=== PATIENT | male | born 1950 | race Caucasian/White ===

== ENCOUNTER 2020-05-10 08:23 | Outpatient (REF) | payer MEDICARE, SELFPAY ==
[2020-05-10 09:25] LABS: MANUAL DIFF FLAG NO
[2020-05-10 09:27] LABS: Basophils Percent Auto 0.5 % (0-2); Eosinophils Absolute Auto 0.1 X10*3/uL (0.0-0.4); Eosinophils Percent Auto 3.4 % (0-4); Hematocrit 41.7 % (42-52); Hemoglobin 14.2 g/dl (14.0-18.0); Imm Gran Abs Auto 0.01 X10*3/uL (0.00-0.03); Imm Gran Pct Auto 0.3 % (0.0-0.4); Lymphocytes Percent Auto 24.8 % (20-40); Mean Corpuscular HGB Conc 34.1 g/dl (31.0-36.0); Mean Corpuscular Hemoglobin 32.1 pg (27.0-33.0); Mean Corpuscular Volume 94.3 fL (80-98); Mean Platelet Volume 10.6 fL (9.4-12.4); Monocytes Absolute Auto 0.5 X10*3/uL (0.1-1.2); Monocytes Percent Auto 11.9 % (2-11); Neutrophils Absolute Auto 2.3 X10*3/uL (2.0-8.3); Neutrophils Percent Auto 59.1 % (45-73); Platelet Count 181 X10*3/uL (160-400); Red Blood Count 4.42 X10*6/uL (4.60-5.80); Red Cell Distribution Width 11.7 % (11.0-16.0); White Blood Count 3.9 X10*3/uL (4.8-10.8)
[2020-05-10 09:49] LABS: Alanine Aminotransferase 16 U/L (0-40); Albumin Level 3.9 g/dL (3.5-5.0); Alkaline Phosphatase 67 U/L (39-117); Anion Gap 7 (12-20); Aspartate Amino Transferase 19 U/L (5-37); Bilirubin Total 0.9 mg/dL (0.0-1.0); Blood Urea Nitrogen 14 mg/dL (9-16); Calcium 8.6 mg/dL (8.4-10.2); Carbon Dioxide 33 mmol/L (22-29); Chloride 105 mmol/L (96-108); Cholesterol 154 mg/dL; Estimated Glomerular Filt Rate > 60; Glucose Random 87 mg/dL (60-115); HDL Cholesterol 43 mg/dL; LDL Cholesterol Calculated 100 mg/dl; Potassium 4.2 mmol/l (3.3-5.1); Sodium 141 mmol/L (135-145); Total Protein 6.5 g/dL (6.5-8.0); Triglycerides 58 mg/dL
[2020-05-10 10:10] LABS: Free T4 (Free Thyroxine) 1.02 ng/dL (0.71-1.85); Prostate Specific Antigen Scr 0.91 ng/mL (<0.05-4.0); Thyroid Stimulating Hormone 0.87 uIU/mL (0.32-4.0)
[2020-05-10 10:27] LABS: Folate 18.8 ng/mL (> or = 4.0); Vitamin B12 442 pg/mL (200-900)
== END 2020-05-10 08:24 | disposition home or self-care (01) ==
LOC: HO.LAB 08:23
PROVIDERS: Visit Provider Internal Medicine
DX: K40.90 Unilateral inguinal hernia, without obstruction or gangrene, not specified as recurrent (principal); E78.00 Pure hypercholesterolemia, unspecified
CPT/HCPCS: 36415; 80053; 80061; 82607; 82746; 84153; 84439; 84443; 85025

== ENCOUNTER 2021-03-30 11:49 | Outpatient (REF) | payer MEDICARE, SELFPAY ==
[2021-03-30 12:04] LABS: MANUAL DIFF FLAG NO
[2021-03-30 13:01] LABS: Basophils Percent Auto 0.3 % (0-2); Eosinophils Absolute Auto 0.1 X10*3/uL (0.0-0.4); Eosinophils Percent Auto 2.4 % (0-4); Hematocrit 41.2 % (42.0-52.0); Hemoglobin 13.7 g/dl (14.0-18.0); Imm Gran Abs Auto 0.01 X10*3/uL (0.00-0.03); Imm Gran Pct Auto 0.3 % (0.0-0.4); Lymphocytes Absolute Auto 0.9 X10*3/uL (1.2-4.9); Lymphocytes Percent Auto 22.9 % (20-40); Mean Corpuscular HGB Conc 33.3 g/dl (31.0-36.0); Mean Corpuscular Hemoglobin 31.5 pg (27.0-33.0); Mean Corpuscular Volume 94.7 fL (80.0-98.0); Mean Platelet Volume 10.2 fL (9.4-12.4); Monocytes Absolute Auto 0.5 X10*3/uL (0.1-1.2); Monocytes Percent Auto 13.6 % (2-11); Neutrophils Absolute Auto 2.3 x10*3/uL (2.0-8.3); Neutrophils Percent Auto 60.5 % (45-73); Platelet Count 208 X10*3/uL (160-400); Red Blood Count 4.35 X10*6/uL (4.60-5.80); Red Cell Distribution Width 11.8 % (11.0-16.0); White Blood Count 3.8 X10*3/uL (4.8-10.8)
[2021-03-30 14:02] LABS: Folate 17.2 ng/mL (> or = 4.0); Vitamin B12 309 pg/mL (200-900)
[2021-03-30 14:31] LABS: Alanine Aminotransferase 14 U/L (0-40); Alkaline Phosphatase 70 U/L (39-117); Anion Gap 8 (12-20); Aspartate Amino Transferase 15 U/L (5-37); Bilirubin Total 0.6 mg/dL (0.0-1.0); Blood Urea Nitrogen 18 mg/dL (9-16); Calcium 8.3 mg/dL (8.4-10.2); Carbon Dioxide 29 mmol/L (22-29); Chloride 107 mmol/L (96-108); Cholesterol 158 mg/dL; Estimated Glomerular Filt Rate > 60; Glucose Random 84 mg/dL (60-115); HDL Cholesterol 40 mg/dL; LDL Cholesterol Calculated 110 mg/dl; Potassium 4.1 mmol/L (3.3-5.1); Sodium 140 mmol/L (135-145); Total Protein 6.7 g/dL (6.5-8.0); Triglycerides 43 mg/dL
[2021-03-30 14:46] LABS: Free T4 (Free Thyroxine) 0.98 ng/dL (0.71-1.85); Prostate Specific Antigen Scr 0.76 ng/mL (<0.05-4.0); Thyroid Stimulating Hormone 0.68 uIU/mL (0.32-4.0)
== END 2021-03-30 11:50 | disposition home or self-care (01) ==
LOC: HO.LAB 11:49
PROVIDERS: PCP Internal Medicine; Visit Provider Internal Medicine
DX: Z12.5 Encounter for screening for malignant neoplasm of prostate (principal); E53.8 Deficiency of other specified B group vitamins; G25.0 Essential tremor; E78.00 Pure hypercholesterolemia, unspecified
CPT/HCPCS: 36415; 80053; 80061; 82306; 82607; 82746; 84153; 84439; 84443; 85025

== ENCOUNTER 2021-10-17 08:28 | Outpatient (REF) | payer MEDICARE, SELFPAY ==
[2021-10-19 05:37] LABS: Lyme Abs Screen <0.90 index
== END 2021-10-17 08:29 | disposition home or self-care (01) ==
LOC: HO.LAB 08:28
PROVIDERS: PCP Internal Medicine; Visit Provider Internal Medicine
DX: T14.8XXA Other injury of unspecified body region, initial encounter (principal); W57.XXXA Bitten or stung by nonvenomous insect and other nonvenomous arthropods, initial encounter
CPT/HCPCS: 36415; 86617; 86618

== ENCOUNTER 2021-11-13 14:46 | Outpatient (REF) | payer MEDICARE, SELFPAY ==
[2021-11-13 15:06] LABS: MANUAL DIFF FLAG NO
[2021-11-13 15:37] LABS: Basophils Percent Auto 0.5 % (0-2); Eosinophils Absolute Auto 0.2 X10*3/uL (0.0-0.4); Eosinophils Percent Auto 4.1 % (0-4); Hematocrit 39.4 % (42.0-52.0); Hemoglobin 13.6 g/dl (14.0-18.0); Imm Gran Abs Auto 0.01 X10*3/uL (0.00-0.03); Imm Gran Pct Auto 0.3 % (0.0-0.4); Immature Retic Fraction 6.1 % (2.3-13.4); Mean Corpuscular HGB Conc 34.5 g/dl (31.0-36.0); Mean Corpuscular Hemoglobin 32.8 pg (27.0-33.0); Mean Corpuscular Volume 94.9 fL (80.0-98.0); Mean Platelet Volume 10.4 fL (9.4-12.4); Monocytes Absolute Auto 0.5 X10*3/uL (0.1-1.2); Monocytes Percent Auto 13.1 % (2-11); Neutrophils Absolute Auto 2.2 x10*3/uL (2.0-8.3); Platelet Count 176 X10*3/uL (160-400); Red Blood Count 4.15 X10*6/uL (4.60-5.80); Reticulocyte Percent 1.1 % (0.5-1.8); Reticulocytes Absolute 0.044 X10*6/uL (0.026-0.095); White Blood Count 3.9 X10*3/uL (4.8-10.8)
[2021-11-13 16:05] LABS: Alanine Aminotransferase 14 U/L (0-40); Alkaline Phosphatase 66 U/L (39-117); Anion Gap 9 (12-20); Aspartate Amino Transferase 18 U/L (5-37); Bilirubin Total 0.6 mg/dL (0.0-1.0); Blood Urea Nitrogen 20 mg/dL (9-16); Calcium 8.5 mg/dL (8.4-10.2); Carbon Dioxide 31 mmol/L (22-29); Chloride 105 mmol/L (96-108); Estimated Glomerular Filt Rate > 60; Glucose Random 83 mg/dL (60-115); Iron 130 mcg/dL (45-160); Percent Iron Saturation 43 % (15-50); Phosphorus 3.5 mg/dL (2.7-4.5); Potassium 4.3 mmol/L (3.3-5.1); Sodium 141 mmol/L (135-145); Total Iron Binding Capacity 300 mcg/dL (228-428); Total Protein 6.7 g/dL (6.5-8.0); Unsaturated Iron Binding 170 ug/dL
[2021-11-13 16:11] LABS: Erythrocyte Sedimentation Rate 7 MM/HR (0-15)
[2021-11-13 16:26] LABS: Ferritin 43 ng/mL (20-250); Thyroid Stimulating Hormone 0.63 uIU/mL (0.32-4.0)
[2021-11-13 16:37] LABS: Folate 17.6 ng/mL (> or = 4.0); Vitamin B12 293 pg/mL (200-900)
[2021-11-14 15:47] LABS: Calcium (PTHI) 8.8 mg/dL (8.6-10.3); PTHI 63 pg/mL (16-77)
[2021-11-15 17:03] LABS: Lyme Abs Screen <0.90 index
== END 2021-11-13 14:47 | disposition home or self-care (01) ==
LOC: HO.LAB 14:46
PROVIDERS: PCP Internal Medicine; Visit Provider Internal Medicine
DX: D64.9 Anemia, unspecified (principal); T14.8XXA Other injury of unspecified body region, initial encounter; W57.XXXA Bitten or stung by nonvenomous insect and other nonvenomous arthropods, initial encounter; E83.51 Hypocalcemia
CPT/HCPCS: 36415; 80053; 82306; 82607; 82728; 82746; 83540; 83735; 83970; 84100; 84439; 84443; 85025; 85045; 85652; 86617; 86618

== ENCOUNTER → 2021-12-04 11:12 | Outpatient (BNV) | payer MEDICARE, SELFPAY | PROVIDERS: PCP Internal Medicine; Referring Provider Internal Medicine; Visit Provider Internal Medicine Medical Oncology | DX: D64.9 Anemia, unspecified (principal) | CPT/HCPCS: 99204; 99213 ==

== ENCOUNTER 2022-04-02 15:20 | Outpatient (REF) | payer MEDICARE, SELFPAY ==
--- NOTE | ~2022-04-02 | US_ITS ---
EXAMINATION: US PELVIS LIMITED (BLADDER) CLINICAL INFORMATION: Frequency of micturition. COMPARISON: None TECHNIQUE: Real-time imaging of the bladder. FINDINGS: BLADDER: Well distended and normal. Bilateral ureteral jets are demonstrated. Prevoid bladder volume is 212 mL. Postvoid bladder volume is 75.1 mL. Enlarged prostate, volume 68.2 mL. Dystrophic shadowing calcifications in the prostate. US/US bladder IMPRESSION: Post void bladder residual of 75.1 mL. Prostate is enlarged measuring 68.2 mL.
== END 2022-04-02 15:21 | disposition home or self-care (01) ==
LOC: HO.US 15:20
PROVIDERS: Visit Provider Internal Medicine
DX: R35.0 Frequency of micturition (principal)
CPT/HCPCS: 76857

== ENCOUNTER 2023-06-10 08:52 | Outpatient (AMB) | payer MEDICARE, SELFPAY ==
[2023-06-10 08:53] VITALS: BP 126/80; PULSE 59; O2SAT 99; BMI 22.5
--- NOTE | 2023-06-10 08:53 | AM.OFFVISMDC ---
Intake Vital Signs 06/10/23 08:53 Height 5 ft 11 in Weight 161 lb 0.8 oz BMI 22.5 BP 126/80 Blood Pressure Location Lt brachial Position Sitting Pulse 59 Pulse Source Pulse Oximeter Pulse Oximetry (%) 99 Oxygen Delivery Method Room Air Intake Visit Reasons: TIERNEY [id number] Intake Note: Patient is here for an Annual Wellness Visit. Safety Professional Required: No Allergies amoxicillin [AMOXICILLIN] Allergy (Severe, Verified 06/10/23 08:54) ITCHING bee pollen [BEE STINGS] Allergy (Severe, Verified 06/10/23 08:54) ANAPHYLAXIS hazelnut Allergy (Severe, Verified 06/10/23 08:54) SWELLING/ITCHING OF THROAT walnut Allergy (Severe, Verified 06/10/23 08:54) SWELLING/ITCHING OF THROAT hornet venom [HORNETS] Allergy (Unknown, Verified 06/10/23 08:54) ANAPHYLAXIS Penicillins [PCN] Allergy (Unknown, Verified 06/10/23 08:54) UNKNOWN lactose [LACTOSE] Adverse Reaction (Intermediate, Verified 06/10/23 08:54) GI UPSET Medication List - Last Reconciled 06/10/23 by Mora Foster MD ascorbic acid (vitamin C) 1 g PO Q6H cyanocobalamin (vitamin B-12) 1,000 mcg PO DAILY flaxseed oil 1,000 mg PO DAILY multivitamin 1 tab PO DAILY tamsulosin 0.4 mg PO BEDTIME 90 days Fall Risk Assessment Fall risk assessment: No Falls in past year Date Fall Risk Assessed: 06/10/23 HPI [facility] G0439 HPI Details 73-year-old male with a history of essential tremor vitamin B12 deficiency anemia frequency of micturition coming in for annual well visit last seen in February 2022. Patient's colonoscopy up-to-date November 2019 and 5 years. Review of the notes has seen hematology oncology April 2023 for normochromic normocytic anemia and leukopenia advised to continue monitoring as the workup has been negative. Patient did have an annual well visit in May 2022 under the nurse practitioner. Wrist thing back in March 2022 had frequency and an ultrasound of the bladder done showing a postvoid of 75 cc an enlargement of prostate 68.2 cc. occ dizzy and drinks water better. - 04/2023 R eye blank- came back vision - after which happened again - will be seeing Dr. Holley this week. covid 12/2022 [facility] Medical History Cholelithiasis Essential tremor Migraine Polyp of ear canal Tubular adenoma of colon Vitamin B12 deficiency Vitamin D deficiency Surgical History History of ear surgery History of tonsillectomy Family History Father CVD (cerebrovascular disease) Stroke Mother Sister Melanoma Myocardial infarction Maternal Grandmother Pancreatic cancer Paternal Grandfather Lung cancer Maternal Aunt Colon cancer Maternal Uncle Myocardial infarction Social History (Updated 06/10/23 @ 09:34 by Mora Foster MD) Household Members: None Housing: House Alcohol intake: never Patient Tobacco Use Status: Former Tobacco user Years Smoked: stopped 1977 e-Cigarette/Vaping Use: Never Used Second Hand Smoke Exposure: No service: No Current occupational status: employed and retired Gender identity: Male Cognitive needs: No Hearing needs: No Vision needs: Yes Questionnaire Medicare Wellness Checkup What [age]?: 71-79 (72) What gender do you identify with?: male During the past 4 weeks, how much have you been bothered by emotional problems such as feeling anxious, depressed, irritable, sad or downhearted, and blue?: not at all During the past 4 weeks, has your physical & emotional health limited your social activities with family, friends, neighbors, or groups?: not at all During the past 4 weeks, how much bodily pain have you generally had?: very mild pain During the past 4 weeks, was someone available to help you if you needed & wanted help?: yes, quite a bit During the past 4 weeks, what was the hardest physical activity you could do for at least 2 minutes?: heavy Can you get to places out of walking distance without help? (For eg., can you travel alone on buses, taxis or drive your car?): Yes Can you go shopping for groceries or clothes without someone's help?: Yes Can you prepare your own meals?: Yes Can you do your housework without help?: Yes Because of any health problems, do you need the help of another person with your personal care needs such as eating, bathing, dressing or getting around the house?: No Can you handle your own money without help?: Yes During the past 4 weeks, how would you rate your health in general?: very good During the past 4 weeks how have things been going for you?: very well; could hardly better Are you having difficulties driving your car?: no Do you always fasten your seat belt when you are in a car?: yes, usually During past 4 weeks, have you been bothered by the following: never: Sexual problems?, Trouble eating well?, Teeth or denture problems?, Problems using the telephone? and Tiredness or fatigue? and seldom: Falling or dizzy when standing up Have you fallen 2 or more times in the past year?: No Are you afraid of falling?: No Are you a smoker?: no During the past 4 weeks, how many drinks of wine, beer, or other alcoholic beverages did you have?: no alcohol at all Do you exercise for about 20 minutes 3 or more times a week?: yes, all the time Have you been given information to help with the following?: no: Hazards in your house that might hurt you? and no: Keeping track of your medications? How often do you have trouble taking medicines the way you have been told to take them?: I always take medicine as prescribed How confident are you that you can control & manage most of your health problems?: very confident What is your race?: White PHQ-9 Over the last 2 weeks, how often have you been bothered by any of the following problems? 1. Little interest or pleasure in doing things: not at all 2. Feeling down, depressed, or hopeless: not at all 3. Trouble falling or staying asleep, or sleeping too much: not at all 4. Feeling tired or having little energy: not at all 5. Poor appetite or overeating: not at all 6. Feeling bad about yourself - or that you are a failure or have let yourself or your family down: not at all 7. Trouble concentrating on things, such as reading the newspaper or watching television: not at all 8. Moving or speaking so slowly that other people could have noticed. Or the opposite - being so fidgety or restless that you have been moving around a lot more than usual: not at all 9. Thoughts that you would be better off or of hurting yourself in some way: not at all Total score: 0 Depression Screening Interpretation: Negative Depression Screening Done: Yes 92183 - PHQ-9 Billing: Yes Source: Developed by Drs. Chepe Peoples, Al Calle and colleagues, with an educational daniel from [employer]. GIULIANO-7 AMB Questionnaire GIULIANO-7 Date GIULIANO - 7 assessed: 06/10/23 Feeling nervous, anxious, or on edge: 0 = Not at all Not being able to stop or control worryin = Not at all Worrying too much about different things: 0 = Not at all Trouble relaxin = Not at all Being so restless that it is hard to sit still: 0 = Not at all Becoming easily annoyed or irritable: 0 = Not at all Feeling afraid as if something awful might happen: 0 = Not at all Total GIULIANO-7 score (0-4 normal; 5-9 mild; 10-14 moderate; 15-21 severe): 0 Source: Developed by Drs. Chepe Peoples, Cris Matos, Al Shaw and colleagues, with an educational daniel from [employer]. Thrive Questionnaire Date Thrive assessed: 06/10/23 I am a: Patient What is your living situation today?: I have a steady place to live Within the past 12 months, did the food you bought not last and you didn't have the money to get more?: Never true Within the past 12 months, did you worry whether your food would run out before you got money to buy more?: Never true Do you have trouble paying for medicines?: No Do you have trouble getting transportation to medical appointments?: No Do you have trouble paying your heating and electricity bill?: No Do you have trouble taking care of your child, family member or friend?: No Do you have trouble with day-to-day activities such as bathing, preparing meals, shopping, managing finances, etc.?: No Are you currently unemployed and looking for a job?: No Are you interested in more education?: No Please select the resources that you would like help with: None THRIVE Score: 0 AUDIT C Alcohol Use Questionnaire (AUDIT-C) 1. How often do you have a drink containing alcohol?: Monthly or less 2. How many drinks containing alcohol do you have on a typical day when you are drinking?: 5 or 6 3. How often do you have six or more drinks on one occasion?: Never Total Score: 3 Score Reviewed/Action Taken: No Review of Systems Const Denies poor appetite and Denies weakness Eyes Denies no additional complaints ENT Reports Normal hearing present, Denies dizziness, Denies nasal congestion, Denies tinnitus and Denies sore throat Card Denies chest pain, Denies syncope, Denies rapid heart rate and Denies dyspnea Resp Denies cough and Denies dyspnea GI Denies change in stool character, Reports constipation, Denies diarrhea, Denies nausea and Denies vomiting Denies dysuria and Denies urinary frequency Neuro Reports Normal hearing present, Denies confusion, Denies dizziness, Denies syncope and Denies weakness Psych Denies confusion Physical Exam Vital Signs: Last Vital Signs Pulse 59 06/10/23 08:53 BP 126/80 06/10/23 08:53 Pulse Ox 99 06/10/23 08:53 Oxygen Delivery Method Room Air 06/10/23 08:53 BMI result Body Mass Index 22.5 Const General: No confusion Orientation/consciousness: No confusion HEENT Head: Yes normocephalic Ears: external ears normal and TM's normal bilaterally Face and sinus: Yes normal facial exam Mouth: moist mucous membranes Throat: Yes tonsils normal Eyes Conjunctivae: conjunctivae normal Pupils: Equal, round and reactive pupils present and Pupil accommodation reflex normal Direct Ophthalmoscopy: normal light reflex Neck Neck: No lymphadenopathy Thyroid: Thyroid normal Chest Chest palpation & inspection: normal inspection of the chest Resp Effort & Inspection: normal respiratory effort and no audible wheezes Auscultation: clear to auscultation bilaterally, no crackles, no wheezes and lung sounds not diminished Cardio Rate: regular rate Rhythm: regular rhythm Peripheral pulses: radial pulses present and dorsalis pedis present GI Other: guaiac neg prostate enlatged no mass Palpation (GI): no masses Auscultation: normal bowel sounds and normoactive bowel sounds Rectal Exam - Male: Yes deferred Other: mild R inguinal bulge noted Skin General skin exam: no rashes or lesions noted Rashes: no rashes Neuro General: No confusion Cranial nerves: Yes Equal, round and reactive pupils present and Yes Normal hearing present Cognition (Neuro): normal cognition Gait exam (Neuro): Normal gait present Motor exam (neuro): 5/5 motor strength present throughout Deep tendon reflexes (DTR's): Right brachioradialis reflex intensity grade: 2+, Left brachioradialis reflex intensity grade: 2+, Right patellar reflex intensity grade: 2+ and Left patellar reflex intensity grade: 2+ Extrem General: No edema Assessment & Plan Assessment & Plan (1) Medicare annual wellness visit, subsequent: Code(s): Z00.00 - Encounter for general adult medical examination without abnormal findings Plan: Keep well hydrated, eat healthy and keep active (2) BPH (benign prostatic hyperplasia): Code(s): N40.0 - Benign prostatic hyperplasia without lower urinary tract symptoms Qualifiers: Lower urinary tract symptom presence: symptoms present Lower urinary tract symptom detail: urinary frequency Qualified Code(s): N40.1 - Benign prostatic hyperplasia with lower urinary tract symptoms; R35.0 - Frequency of micturition Plan: Prescribed tamsulosin but states does not feel any different. And presently stable (3) Urinary retention: Code(s): R33.9 - Retention of urine, unspecified Plan: Patient has been prescribed tamsulosin (4) Normochromic normocytic anemia: Code(s): D64.9 - Anemia, unspecified Plan: Resolved continues to follow-up with Hematology-Oncology (5) Vitamin B12 deficiency: Comment: Vegetarian Code(s): E53.8 - Deficiency of other specified B group vitamins Plan: Continue with vitamin B12 (6) Essential tremor: Code(s): G25.0 - Essential tremor Plan: Stable Medications: New varicella-zoster [id number] (PF) 50 mcg/0.5 mL (Shingrix (PF)) 0.5 mL IM ONCE 1 day 1 ea 0RF Quality Reporting (2019) Fall Risk Screening ([facility] 139) Last assessed Fall Risk: 06/10/23 Fall risk assessment: No Falls in past year Depression/Bipolar (159/160/161/177) PHQ-9: Total score: 0 Coding Level of Care Code Medicare Subsequent (G0439) Diagnoses Medicare annual wellness visit, subsequent Z00.00 Benign prostatic hyperplasia with urinary frequency N40.1; R35.0 Lower urinary tract symptom presence: symptoms present Lower urinary tract symptom detail: urinary frequency Urinary retention R33.9 Normochromic normocytic anemia D64.9 Vitamin B12 deficiency E53.8 Essential tremor G25.0
== END 2023-06-10 09:55 | disposition home or self-care (01) ==
PROVIDERS: Visit Provider Internal Medicine
DX: Z00.00 Encounter for general adult medical examination without abnormal findings (principal); N40.1 Benign prostatic hyperplasia with lower urinary tract symptoms; R35.0 Frequency of micturition; R33.9 Retention of urine, unspecified; D64.9 Anemia, unspecified; E53.8 Deficiency of other specified B group vitamins; G25.0 Essential tremor
CPT/HCPCS: G0439

== ENCOUNTER 2023-06-10 10:01 | Outpatient (REF) | payer MEDICARE, SELFPAY ==
[2023-06-10 10:16] LABS: MANUAL DIFF FLAG NO
[2023-06-10 10:50] LABS: Basophils Percent Auto 0.6 % (0-2); Eosinophils Absolute Auto 0.1 X10*3/uL (0.0-0.4); Eosinophils Percent Auto 3.6 % (0-4); Hematocrit 42.5 % (42.0-52.0); Hemoglobin 14.3 g/dl (14.0-18.0); Imm Gran Abs Auto 0.01 X10*3/uL (0.00-0.03); Imm Gran Pct Auto 0.3 % (0.0-0.4); Lymphocytes Absolute Auto 0.9 X10*3/uL (1.2-4.9); Lymphocytes Percent Auto 23.5 % (20-40); Mean Corpuscular HGB Conc 33.6 g/dl (31.0-36.0); Mean Corpuscular Hemoglobin 31.8 pg (27.0-33.0); Mean Corpuscular Volume 94.7 fL (80.0-98.0); Mean Platelet Volume 10.3 fL (9.4-12.4); Monocytes Absolute Auto 0.4 X10*3/uL (0.1-1.2); Monocytes Percent Auto 11.1 % (2-11); Neutrophils Absolute Auto 2.2 x10*3/uL (2.0-8.3); Neutrophils Percent Auto 60.9 % (45-73); Platelet Count 165 X10*3/uL (160-400); Red Blood Count 4.49 X10*6/uL (4.60-5.80); Red Cell Distribution Width 12.1 % (11.0-16.0); Retic HGB Equivalent 36.6 pg (30.0-35.0); Reticulocyte Percent 1.1 % (0.5-1.8); White Blood Count 3.6 X10*3/uL (4.8-10.8)
[2023-06-10 10:52] LABS: Appearance Urine Clear; Color Urine Yellow; Glucose Urine UA Negative (Negative); Leukocyte Esterase Urine Negative (Negative); Nitrite Urine Negative (Negative); PH 5.5 (5.0-9.0); Specific Gravity - Urine >= 1.030 (1.005-1.025); UMIC TRIGGER UA YES; Urine Blood Moderate (2+) (Negative); Urine Ketones Negative (Negative); Urine Protein 30 (1+) mg/dL (Neg-Trace)
[2023-06-10 10:59] LABS: Bacteria Urine None Seen (None Seen); Hyaline Casts Urine 0-2 /LPF (0-2); Squamous Epithelial Cell Urine 0-2 /HPF (0-2); WBC Urine 0-5 /HPF (0-5)
[2023-06-10 11:24] LABS: Alanine Aminotransferase 15 U/L (0-40); Albumin Level 3.9 g/dL (3.5-5.0); Alkaline Phosphatase 75 U/L (39-117); Anion Gap 11 (12-20); Aspartate Amino Transferase 17 U/L (5-37); Bilirubin Total 0.6 mg/dL (0.0-1.0); Blood Urea Nitrogen 13 mg/dL (9-16); Calcium 9.1 mg/dL (8.4-10.2); Carbon Dioxide 30 mmol/L (22-29); Chloride 106 mmol/L (96-108); Cholesterol 158 mg/dL (<200); Estimated Glomerular Filt Rate > 60; Glucose Random 89 mg/dL (60-115); HDL Cholesterol 47 mg/dL (>40); Iron 115 mcg/dL (45-160); LDL Cholesterol Calculated 101 mg/dL (<100); Percent Iron Saturation 42 % (15-50); Potassium 4.1 mmol/L (3.3-5.1); Sodium 143 mmol/L (135-145); Total Iron Binding Capacity 277 mcg/dL (228-428); Total Protein 6.8 g/dL (6.5-8.0); Triglycerides 51 mg/dL (<150); Unsaturated Iron Binding 162 ug/dL
[2023-06-10 11:47] LABS: Ferritin 43 ng/mL (20-250); Free T4 (Free Thyroxine) 0.92 ng/dL (0.71-1.85); Thyroid Stimulating Hormone 1.09 uIU/mL (0.32-4.0)
[2023-06-10 11:48] LABS: Folate 13.2 ng/mL (> or = 4.0); Prostate Specific Antigen Scr 0.79 ng/mL (<0.05-4.0); Vitamin B12 757 pg/mL (200-900)
== END 2023-06-10 10:02 | disposition home or self-care (01) ==
LOC: HO.LAB 10:01
PROVIDERS: PCP Internal Medicine; Visit Provider Internal Medicine
DX: D64.9 Anemia, unspecified (principal); G25.0 Essential tremor; E78.00 Pure hypercholesterolemia, unspecified; Z12.5 Encounter for screening for malignant neoplasm of prostate
CPT/HCPCS: 36415; 80053; 80061; 81001; 82607; 82728; 82746; 83540; 84153; 84439; 84443; 85025; 85045

== ENCOUNTER 2023-11-01 12:51 | Emergency (ER) | payer MEDICARE, SELFPAY ==
[2023-11-01] VITALS (7 sets, daily range): BP systolic 130–149; BP diastolic 64–83; PULSE 59–86; RESP 12–18; TEMP 36.6; O2SAT 98–99; BMI 22.3
--- NOTE | ~2023-11-01 | XR_ITS ---
EXAMINATION: XR CHEST CLINICAL INFORMATION: Chest tightness COMPARISON: Chest radiograph from 05/10/2015 TECHNIQUE: 2 views of the chest were obtained. FINDINGS: No focal consolidation. No pneumothorax. Trachea is midline. Cardiac mediastinal silhouette is not enlarged. Aorta demonstrates tortuosity. No large pleural effusion. Dextrocurvature of the thoracolumbar spine. Soft tissues are unremarkable. XR/XR chest 2V IMPRESSION: No acute cardiopulmonary process.
--- NOTE | ~2023-11-01 | CT_ITS ---
EXAMINATION: CT HEAD WITHOUT CONTRAST CLINICAL INFORMATION: Left arm weakness difficulty staying awake COMPARISON: MRI brain from 11/11/2011 TECHNIQUE: Contiguous axial imaging was performed from the skull base to vertex without intravenous administration of contrast. This CT examination was performed using dose optimization techniques as appropriate, variously including the following: *Automated exposure control *Adjustment of mA and/or kV according to patient size (this includes techniques or standardized protocols for targeted exams where dose is matched to indication/reason for exam; i.e. extremities or head) *Use of iterative reconstruction technique DLP: 636 mGy-cm FINDINGS: There is no evidence of acute intracranial hemorrhage or territorial infarction. Chronic white matter small vessel ischemic changes. No abnormal mass effect or midline shift is seen. Moreno to white matter differentiation is well preserved. No extra-axial fluid collections are identified. The ventricles are normal in size. There is no abnormal attenuation within the brain parenchyma. The osseous structures and soft tissues are normal. Partially visualized mucosal retention cyst versus polyp right maxillary sinus. The mastoid air cells and visualized portions of the paranasal sinuses are well aerated. CT/CT head/brain wo IV con IMPRESSION: 1. No acute intracranial pathology. 2. Chronic white matter small vessel ischemic changes.
--- NOTE | 2023-11-01 12:53 | ECG_ITS ---
Test Reason : DIZZY Blood Pressure : / mmHG Vent. Rate : 087 BPM Atrial Rate : 087 BPM P-R Int : 138 ms QRS Dur : 104 ms QT Int : 360 ms P-R-T Axes : 074 068 061 degrees QTc Int : 433 ms Normal sinus rhythm Minimal voltage criteria for LVH, may be normal variant ( [place] product ) Borderline ECG When compared with ECG of 24-JUN-2019 14:41, Nonspecific T wave abnormality no longer evident in Anterolateral leads Referred By: Maria M Kim Electronically Signed By:Jose C Gonzalez
--- NOTE | 2023-11-01 12:58 | ED.GENADULT ---
HPI - General Adult General Chief complaint: Dizziness Stated complaint: lightheaded dry mouth Time Seen by Provider: 11/01/23 16:00 Source: patient and RN notes reviewed Mode of arrival: ambulatory Limitations: no limitations History of Present Illness ED Provider: Angle Reynolds PA-C HPI narrative: This is a 73-year-old male, with a history of BPH and essential tremor, who presents emergency department with complaints of intermittent lightheadedness x6 days. Patient states that he has noticed that he is lightheaded in the morning describing this lightheadedness as the room spinning as well as as if he has on a boat. Patient states that he notices this especially with positional changes and lasts for several seconds and resolves on its own. Patient also states that over the last week or so he has also had mouth and throat tingling. Patient states that while he was driving to [place] this afternoon his car was alerting him to stay alert. He states that he is feeling fatigued at the time however did not lose consciousness or believes that he was driving recklessly. He states that he felt some numbness and tingling down his left arm which lasted for several minutes. He did not have any chest pain or shortness for breath at that time. He states that he pull to the side of the road and came to the emergency room. He denies any fevers, chills, chest pain, palpitations, shortness of breath, abdominal pain, nausea, vomiting or diarrhea. He states that he does hike [place] with his dog on a regular basis. No known tick bites. No rashes. Denies any other complaints or concerns at this time. complaint: Lightheadedness Onset (ago): day(s) Radiation: non-radiation Relieving factors: none Exacerbating factors: none Associated symptoms: denies other symptoms Treatments prior to arrival: none Related Data Home Medications ?Medication ?Instructions ?Recorded ?Confirmed cyanocobalamin (vitamin B-12) 1,000 mcg PO DAILY 04/04/20 06/10/23 1,000 mcg capsule flaxseed oil 1,000 mg capsule 1,000 mg PO DAILY 04/04/20 06/10/23 multivitamin 1 tab PO DAILY 04/04/20 06/10/23 ascorbic acid (vitamin C) 1,000 mg 1 g PO Q6H 06/10/23 06/10/23 capsule Previous Rx's ?Medication ?Instructions ?Recorded varicella-zoster glycoE [id number] 0.5 ml IM ONCE 1 day #1 ea 06/10/23 adj(PF) 50 mcg/0.5 mL IM susp, kit (Shingrix (PF)) tamsulosin 0.4 mg capsule 0.4 mg PO BEDTIME 90 days #90 caps 09/29/23 Allergies Allergy/AdvReac Type Severity Reaction Status Date / Time amoxicillin [AMOXICILLIN] Allergy Severe ITCHING Verified 11/01/23 13:02 bee pollen [BEE STINGS] Allergy Severe ANAPHYLAXIS Verified 11/01/23 13:02 hazelnut Allergy Severe SWELLING/ITCHING Verified 11/01/23 13:02 OF THROAT walnut Allergy Severe SWELLING/ITCHING Verified 11/01/23 13:02 OF THROAT hornet venom [HORNETS] Allergy Unknown ANAPHYLAXIS Verified 11/01/23 13:02 Penicillins [PCN] Allergy Unknown UNKNOWN Verified 11/01/23 13:02 lactose [LACTOSE] AdvReac Intermediate GI UPSET Verified 11/01/23 13:02 Review of Systems Review of Systems: Yes all other systems are reviewed and are negative Constitutional: Constitutional: Reports as per [facility] Past Medical History Attestation statement: The following information was validated with the patient. Medical History Cholelithiasis Migraine Tubular adenoma of colon Essential tremor Polyp of ear canal Vitamin D deficiency Vitamin B12 deficiency Surgical History History of ear surgery History of tonsillectomy Family History Family History Father CVD (cerebrovascular disease) Stroke Mother Sister Melanoma Myocardial infarction Maternal Grandmother Pancreatic cancer Paternal Grandfather Lung cancer Maternal Aunt Colon cancer Maternal Uncle Myocardial infarction Social History Social History Household Members: None Housing: House Alcohol intake: never Patient Tobacco Use Status: Former Tobacco user Years Smoked: stopped 1978 Smoked in Last 30 Days: No e-Cigarette/Vaping Use: Never Used Second Hand Smoke Exposure: No Use of substances other than those prescribed or required for medical reasons: No Advance Directives: No Advance Directives Information Provided: No service: No Current occupational status: employed and retired Gender identity: Male Cognitive needs: No Hearing needs: No Vision needs: Yes Physical Exam ED Vital Signs: Vital Signs - 24 hr 11/01/23 12:58 11/01/23 16:37 11/01/23 16:50 Temperature 98 F Pulse Rate 86 69 59 Respiratory Rate 18 16 Blood Pressure 149/83 H 148/80 H 133/67 Pulse Oximetry 98 99 Oxygen Delivery Method Room Air Room Air 11/01/23 16:52 11/01/23 16:54 11/01/23 20:00 Temperature 97.9 F Pulse Rate 64 68 62 Respiratory Rate 12 Blood Pressure 136/72 140/73 H 130/64 Pulse Oximetry 99 Oxygen Delivery Method Room Air BMI result Body Mass Index 22.3 Const General: cooperative, comfortable and no acute distress Orientation/consciousness: patient oriented x3 Limitations: no limitations HENMT Head: Yes normal to inspection, Yes normocephalic and Yes atraumatic Ears: hearing grossly normal bilaterally General nose exam: Normal external nose present Face and sinus: Yes normal facial exam Mouth: Normal oral and palatal mucosa present, oropharynx normal and moist mucous membranes Throat: Yes posterior oropharynx normal Eyes General: appearance normal, both eyes and all related structures Eyelids: Yes eyelids normal Conjunctivae: conjunctivae normal Sclerae: sclerae normal Pupils: Equal, round and reactive pupils present EOM: EOMs intact bilaterally Neck Neck: Yes normal visual inspection, Yes full ROM and Yes no lymphadenopathy Lymphatic: no lymphadenopathy noted Chest Chest palpation & inspection: normal inspection of the chest Resp Effort & Inspection: normal respiratory effort and able to speak in complete sentences Auscultation: clear to auscultation bilaterally, no crackles, no rales, no rhonchi and no wheezes Cardio Rate: regular rate Rhythm: regular rhythm Heart sounds: S1 normal heart sound present and S2 normal heart sound present GI Inspection: Yes normal to inspection Skin General skin exam: no rashes or lesions noted Trauma: no lacerations or abrasions Wounds: no wounds Neuro General: patient oriented x3 and moves all extremities Cranial nerves: Yes CN's II-XII intact bilaterally and Yes Equal, round and reactive pupils present Cognition (Neuro): normal cognition Gait exam (Neuro): Normal gait present Motor exam (neuro): 5/5 motor strength present throughout, Pronator motor function not present and Tremors during motor activity present (Essential tremor noted in upper extremities which is chronic for him) Coordination: [id number] test normal, vsct-[id number] test normal, tandem gait normal, does not sway with eyes open and Romberg test negative Romberg Test: Negative Pupils: Normal pupillary reactivity/response: bilateral Extrem General: Yes normal to inspection Right upper extremity: normal to inspection Left upper extremity: normal to inspection Right lower extremity: normal to inspection Left lower extremity: normal to inspection NIH Stroke Scale Internal: Other (Upon Physical Exam at 1615) Time: 16:35 Level of Consciousness: Alert Level of Consciousness Questions: Answers both questions correctly Level of Consciousness Commands: Performs both tasks correctly Best Gaze: Normal Visual: No visual loss Facial Palsy: Normal Motor Arm (Right): No drift Motor Arm (Left): No drift Motor Leg (Right): No drift Motor Leg (Left): No drift Limb Ataxia: Absent Sensory: Normal Best Language: No aphasia Dysarthia: Normal Extinction and Inattention: No abnormality Score: 0 Course Course Course Narrative: This is a rapid medical exam performed by Maddie Kim NP: Additional HPI, ROS, PE not included below will be deferred to primary provider. Patient is a 73-year-old male presenting to the ED reporting brief episodes of lightheadedness since Friday, usually in the morning. Today he was driving and his vehicle repeatedly alerted him to stay awake and asking if he wanted the car to find him a rest stop. Mild numbness to left arm, tightness to the roof of his mouth/throat, tongue feels fuzzy intermittently throughout the week, fatigued. Plan: EKG, labs, CXR, CT head Reevaluation(s) Reevaluation #1: CT head negative. Electrolytes within normal range. First troponin is negative however given episode and car, repeat was ordered and had a delta change. Third troponin was ordered. Patient is not orthostatic. Time: 21:29 Reevaluation #2: Third troponin negative. Patient asymptomatic in department. He has had intermittent dizziness which typically occurs with positional changes. This is likely attributed to BPPV, or CT you be viral in nature. I discussed return precautions. He understands and agrees with plan. Will follow-up with his primary care physician on Friday regarding this visit. Advised that we will call him if any of his test results prior the Lyme testing are positive. He understands and agrees with plan. He is feeling well and comfortable with discharge. Time: 21:29 Medical Decision Making Medical Decision Making [facility] Narrative: This is a 73-year-old male, with a history BPH and essential tremor who presents emergency department with complaints of intermittent dizziness x 6 days, intermittent mouth tightness, and tiredness. On arrival, blood pressure elevated at 149/83. All other vital signs within normal limits. Lungs are clear to auscultation bilaterally. No lower extremity swelling. He is neurologically intact without any focal deficits seen on exam. He does have a chronic essential tremor otherwise unremarkable. Differential diagnoses include ACS, CVA-unlikely, orthostatic hypotension, electrolyte derangement, arrhythmia. Plan: Labs UA, EKG, chest x-ray, CT head Differential Diagnosis Differential Diagnoses: The differential diagnosis associated with the presentation includes See above Admission/Observation Consideration of admission/observation: Escalation of care including admission/observation considered Escalation of care including admission/observation considered however given workup today not warranted at this time. Lab Data MDM Lab Attestation statement: I reviewed the patient's lab results. Slight leukopenia at 4.0, H&H 14.4/40.8, plt count 154, 11/01/23 13:32 11/01/23 13:32 Labs: Lab Results 11/01/23 11/01/23 11/01/23 Range/Units 13:32 15:26 17:11 WBC 4.0 L (4.8-10.8) X10*3/uL RBC 4.38 L (4.60-5.80) X10*6/uL Hgb 14.4 (14.0-18.0) g/dl Hct 40.8 L (42.0-52.0) % MCV 93.2 (80.0-98.0) fL MCH 32.9 (27.0-33.0) pg MCHC 35.3 (31.0-36.0) g/dl RDW 11.9 (11.0-16.0) % Plt Count 154 L (160-400) X10*3/uL MPV 10.1 (9.4-12.4) fL Immature Gran % (Auto) 0.0 (0.0-0.4) % Neut % (Auto) 65.7 (45-73) % Lymph % (Auto) 21.6 (20-40) % [place] % (Auto) 10.2 (2-11) % Eos % (Auto) 2.0 (0-4) % Baso % (Auto) 0.5 (0-2) % Lymph # (Auto) 0.9 L (1.2-4.9) X10*3/uL [place] # (Auto) 0.4 (0.1-1.2) X10*3/uL Eos # (Auto) 0.1 (0.0-0.4) X10*3/uL Baso # (Auto) 0.0 (0.0-0.2) X10*3/uL Abs Immat Gran (auto) 0.00 (0.00-0.03) X10*3/uL Absolute Neuts (auto) 2.6 (2.0-8.3) x10*3/uL Absolute Nucleated RBC 0.000 (0.0-0.012) X10*3/uL Nucleated RBC % (auto) 0.0 (0.0-0.2) /100WBC PT 11.7 (11.1-13.3) SEC INR 1.0 (0.9-1.1) Sodium 141 (135-145) mmol/L Potassium 4.1 (3.3-5.1) mmol/L Chloride 106 (96-108) mmol/L Carbon Dioxide 29 (22-29) mmol/L Anion Gap 10 L (12-20) BUN 17 H (9-16) mg/dL Creatinine 0.82 (0.5-1.4) mg/dL Estim Creat Clear Calc 83.5 Estimated GFR > 60 Random Glucose 96 (60-115) mg/dL Calcium 9.4 (8.4-10.2) mg/dL Magnesium 1.9 (1.6-2.6) mg/dL Total Bilirubin 0.7 (0.0-1.0) mg/dL AST 17 (5-37) U/L ALT 11 (0-40) U/L Alkaline Phosphatase 72 (39-117) U/L Troponin I High Sens < 2.7 5.2 D (<3.5-35.0) ng/L Total Protein 7.2 (6.5-8.0) g/dL Albumin 4.1 (3.5-5.0) g/dL TSH 0.94 (0.32-4.0) uIU/mL Urine Color Yellow Urine Appearance Clear Urine pH 5.0 (5.0-9.0) Ur Specific [place] 1.010 (1.005-1.025) Urine Protein Negative (Neg-Trace) mg/dL Urine Glucose (UA) Negative (Negative) mg/dL Urine Ketones Negative (Negative) mg/dL Urine Blood Trace H (Negative) Urine Nitrite Negative (Negative) Ur Leukocyte Esterase Negative (Negative) Urine RBC 0-2 (0-2) /HPF Urine WBC 0-5 (0-5) /HPF Ur Squamous Epith Cells 0-2 (0-2) /HPF Urine Bacteria None Seen (None Seen) Hyaline Casts 0-2 (0-2) /LPF Influenza Type A (PCR) NEGATIVE (Negative) Influenza Type B (PCR) NEGATIVE (Negative) RSV RNA Qual (PCR) NEGATIVE (Negative) SARS-CoV-2 RNA (RT-PCR) NEGATIVE (Negative) 11/01/23 Range/Units 20:36 WBC (4.8-10.8) X10*3/uL RBC (4.60-5.80) X10*6/uL Hgb (14.0-18.0) g/dl Hct (42.0-52.0) % MCV (80.0-98.0) fL MCH (27.0-33.0) pg MCHC (31.0-36.0) g/dl RDW (11.0-16.0) % Plt Count (160-400) X10*3/uL MPV (9.4-12.4) fL Immature Gran % (Auto) (0.0-0.4) % Neut % (Auto) (45-73) % Lymph % (Auto) (20-40) % [place] % (Auto) (2-11) % Eos % (Auto) (0-4) % Baso % (Auto) (0-2) % Lymph # (Auto) (1.2-4.9) X10*3/uL [place] # (Auto) (0.1-1.2) X10*3/uL Eos # (Auto) (0.0-0.4) X10*3/uL Baso # (Auto) (0.0-0.2) X10*3/uL Abs Immat Gran (auto) (0.00-0.03) X10*3/uL Absolute Neuts (auto) (2.0-8.3) x10*3/uL Absolute Nucleated RBC (0.0-0.012) X10*3/uL Nucleated RBC % (auto) (0.0-0.2) /100WBC PT (11.1-13.3) SEC INR (0.9-1.1) Sodium (135-145) mmol/L Potassium (3.3-5.1) mmol/L Chloride (96-108) mmol/L Carbon Dioxide (22-29) mmol/L Anion Gap (12-20) BUN (9-16) mg/dL Creatinine (0.5-1.4) mg/dL Estim Creat Clear Calc Estimated GFR Random Glucose (60-115) mg/dL Calcium (8.4-10.2) mg/dL Magnesium (1.6-2.6) mg/dL Total Bilirubin (0.0-1.0) mg/dL AST (5-37) U/L ALT (0-40) U/L Alkaline Phosphatase (39-117) U/L Troponin I High Sens 6.7 (<3.5-35.0) ng/L Total Protein (6.5-8.0) g/dL Albumin (3.5-5.0) g/dL TSH (0.32-4.0) uIU/mL Urine Color Urine Appearance Urine pH (5.0-9.0) Ur Specific [place] (1.005-1.025) Urine Protein (Neg-Trace) mg/dL Urine Glucose (UA) (Negative) mg/dL Urine Ketones (Negative) mg/dL Urine Blood (Negative) Urine Nitrite (Negative) Ur Leukocyte Esterase (Negative) Urine RBC (0-2) /HPF Urine WBC (0-5) /HPF Ur Squamous Epith Cells (0-2) /HPF Urine Bacteria (None Seen) Hyaline Casts (0-2) /LPF Influenza Type A (PCR) (Negative) Influenza Type B (PCR) (Negative) RSV RNA Qual (PCR) (Negative) SARS-CoV-2 RNA (RT-PCR) (Negative) Radiology Impression Discussion of test interpretation with radiology: I have reviewed the radiologist's reading. Radiologist Impression: EXAMINATION: XR CHEST CLINICAL INFORMATION: Chest tightness COMPARISON: Chest radiograph from 05/10/2015 TECHNIQUE: 2 views of the chest were obtained. FINDINGS: No focal consolidation. No pneumothorax. Trachea is midline. Cardiac mediastinal silhouette is not enlarged. Aorta demonstrates tortuosity. No large pleural effusion. Dextrocurvature of the thoracolumbar spine. Soft tissues are unremarkable. XR/XR chest 2V IMPRESSION: No acute cardiopulmonary process. Dictated By: Ivan Chavez MD CT/CT head/brain wo IV con IMPRESSION: 1. No acute intracranial pathology. 2. Chronic white matter small vessel ischemic changes. Dictated By: Ivan Chavez MD Discharge Plan Discharge Clinical Impression: Dizziness Patient Disposition: Home, Self-Care Instructions: Dizziness (ED) Additional Instructions: You were seen in the emergency department due to ongoing lightheadedness and dizziness. Your workup today was reassuring. We tested you for tick-borne illnesses, this does take several days for it to return, we will call you if any of these results are positive. Please drink plenty of fluids get plenty of rest. Please follow-up with your primary care physician regarding this visit, call on Friday to make an appointment. If any new or worsening symptoms occur including but not limited to severe headache, severe dizziness that does not resolve, changes in vision, chest pain, shortness of breath, please return for re-evaluation. Prescriptions: No Action tamsulosin 0.4 mg capsule 0.4 mg PO BEDTIME 90 Days Qty: 90 1RF multivitamin Tablet 1 tab PO DAILY cyanocobalamin (vitamin B-12) 1,000 mcg capsule 1,000 mcg PO DAILY flaxseed oil 1,000 mg capsule 1,000 mg PO DAILY Rx Instructions: administer with a meal ascorbic acid (vitamin C) 1,000 mg capsule 1 g PO Q6H Shingrix (PF) 50 mcg/0.5 mL suspension for reconstitution 0.5 ml IM ONCE 1 Days Qty: 1 0RF Print Language: Belarusian
[2023-11-01 13:39] LABS: MANUAL DIFF FLAG NO
[2023-11-01 13:41] LABS: Basophils Percent Auto 0.5 % (0-2); Eosinophils Absolute Auto 0.1 X10*3/uL (0.0-0.4); Hematocrit 40.8 % (42.0-52.0); Hemoglobin 14.4 g/dl (14.0-18.0); Lymphocytes Absolute Auto 0.9 X10*3/uL (1.2-4.9); Lymphocytes Percent Auto 21.6 % (20-40); Mean Corpuscular HGB Conc 35.3 g/dl (31.0-36.0); Mean Corpuscular Hemoglobin 32.9 pg (27.0-33.0); Mean Corpuscular Volume 93.2 fL (80.0-98.0); Mean Platelet Volume 10.1 fL (9.4-12.4); Monocytes Absolute Auto 0.4 X10*3/uL (0.1-1.2); Monocytes Percent Auto 10.2 % (2-11); Neutrophils Absolute Auto 2.6 x10*3/uL (2.0-8.3); Neutrophils Percent Auto 65.7 % (45-73); Platelet Count 154 X10*3/uL (160-400); Red Blood Count 4.38 X10*6/uL (4.60-5.80); Red Cell Distribution Width 11.9 % (11.0-16.0)
[2023-11-01 13:52] LABS: Prothrombin Time 11.7 SEC (11.1-13.3)
[2023-11-01 14:05] LABS: Alanine Aminotransferase 11 U/L (0-40); Albumin Level 4.1 g/dL (3.5-5.0); Alkaline Phosphatase 72 U/L (39-117); Anion Gap 10 (12-20); Aspartate Amino Transferase 17 U/L (5-37); Bilirubin Total 0.7 mg/dL (0.0-1.0); Blood Urea Nitrogen 17 mg/dL (9-16); Calcium 9.4 mg/dL (8.4-10.2); Carbon Dioxide 29 mmol/L (22-29); Chloride 106 mmol/L (96-108); Creatinine Clr Calc Pharmacy 83.5; Estimated Glomerular Filt Rate > 60; Glucose Random 96 mg/dL (60-115); Magnesium 1.9 mg/dL (1.6-2.6); Potassium 4.1 mmol/L (3.3-5.1); Sodium 141 mmol/L (135-145); Total Protein 7.2 g/dL (6.5-8.0)
[2023-11-01 14:17] LABS: Troponin-I High Sensitivity < 2.7 ng/L (<3.5-35.0)
[2023-11-01 15:46] LABS: Appearance Urine Clear; Color Urine Yellow; Glucose Urine UA Negative (Negative); Leukocyte Esterase Urine Negative (Negative); Nitrite Urine Negative (Negative); UMIC TRIGGER UACC YES; Urine Blood Trace (Negative); Urine Ketones Negative (Negative); Urine Protein Negative (Neg-Trace)
[2023-11-01 15:52] LABS: Bacteria Urine None Seen (None Seen); Hyaline Casts Urine 0-2 /LPF (0-2); RBC Urine 0-2 /HPF (0-2); Squamous Epithelial Cell Urine 0-2 /HPF (0-2); WBC Urine 0-5 /HPF (0-5)
--- NOTE | 2023-11-01 16:50 | PC.NURSE ---
Reports intermittent dizziness, dry throat and overall malaise X2 weeks. Reports he was driving today and felt unwell, his car told him to pin puller. Denies pain, SOB, N/V/D, fevers or cough. Alert and oriented, breathing even and unlabored, skin warm and dry. Neg for slurred speech, facial droop or unilateral weakness.
[2023-11-01 17:49] LABS: Troponin-I High Sensitivity 5.2 ng/L (<3.5-35.0)
[2023-11-01 18:03] LABS: TSH reflex Free T4 0.94 uIU/mL (0.32-4.0)
[2023-11-01 18:17] LABS: Influenza A PCR NEGATIVE (Negative); Influenza B PCR NEGATIVE (Negative); Resp Syncy Virus RNA Qual PCR NEGATIVE (Negative); SARS COV2 PCR INHOUSE NEGATIVE (Negative)
--- NOTE | 2023-11-01 20:37 | PC.NURSE ---
this rn assumed care of pt, pt resting in stretcher, no acute distress noted. pt requesting tea at this time, okayed by Angle BERGER. pt passed swallow eval at this time. labs redrawn and sent.
[2023-11-01 21:00] LABS: Troponin-I High Sensitivity 6.7 ng/L (<3.5-35.0)
[2023-11-03 21:34] LABS: Lyme Abs Screen <0.90 index
[2023-11-11 03:58] LABS: A. Phagocytophilum Ab IgG <1:64 (<1:64); A. Phagocytophilum Ab IgM <1:20 (<1:20); E. Chaffeensis Ab IgG <1:64 (<1:64); E. Chaffeensis Ab IgM <1:20 (<1:20)
[2023-11-11 07:33] LABS: Babesia IgG <1:64 titer (<1:64); Babesia IgM <1:20 titer (<1:20)
== END 2023-11-01 21:48 | disposition home or self-care (01) ==
PROVIDERS: Physician Assistant Medical; Registered Nurse Emergency; Emergency Provider Student in an Organized Health Care Education/Training Program; PCP Internal Medicine
DX: R42 Dizziness and giddiness (principal); G25.0 Essential tremor; Z03.818 Encounter for observation for suspected exposure to other biological agents ruled out; R20.0 Anesthesia of skin; R29.700 NIHSS score 0; Z87.891 Personal history of nicotine dependence
CPT/HCPCS: 0241U; 36415; 70450; 71046; 80053; 81001; 83735; 84443; 84484; 85025; 85610; 86617; 86618; 86666; 86753; 93005; 99284; 99285

== ENCOUNTER → 2023-11-01 12:53 | Outpatient (BNV) | payer MEDICARE, SELFPAY | PROVIDERS: Emergency Provider Student in an Organized Health Care Education/Training Program; PCP Internal Medicine; Visit Provider Internal Medicine Cardiovascular Disease | DX: R42 Dizziness and giddiness (principal); R94.31 Abnormal electrocardiogram [ECG] [EKG] | CPT/HCPCS: 93010 ==

== ENCOUNTER 2023-11-11 16:42 | Outpatient (AMB) | payer MEDICARE, SELFPAY ==
[2023-11-11 16:43] VITALS: BP 130/80; PULSE 73; O2SAT 98; BMI 22.5
--- NOTE | 2023-11-11 16:43 | MHC.PC.OV ---
Vital Signs 11/11/23 16:43 Height 5 ft 11 in Weight 161 lb BMI 22.5 BP 130/80 Blood Pressure Location Lt brachial Position Sitting Pulse 73 Pulse Source Pulse Oximeter Pulse Oximetry (%) 98 Oxygen Delivery Method Room Air Intake Visit Reasons: [facility] [place] Dizziness Insurance Account Manager Required: No Business Performance Advisor: Not Required per policy Accompanied by: Self / Same As Patient Allergies amoxicillin [AMOXICILLIN] Allergy (Severe, Verified 11/11/23 16:43) ITCHING bee pollen [BEE STINGS] Allergy (Severe, Verified 11/11/23 16:43) ANAPHYLAXIS hazelnut Allergy (Severe, Verified 11/11/23 16:43) SWELLING/ITCHING OF THROAT walnut Allergy (Severe, Verified 11/11/23 16:43) SWELLING/ITCHING OF THROAT hornet venom [HORNETS] Allergy (Unknown, Verified 11/11/23 16:43) ANAPHYLAXIS Penicillins [PCN] Allergy (Unknown, Verified 11/11/23 16:43) UNKNOWN lactose [LACTOSE] Adverse Reaction (Intermediate, Verified 11/11/23 16:43) GI UPSET Medication List - Last Reconciled 11/11/23 by Mora Foster MD ascorbic acid (vitamin C) 1 g PO Q6H cyanocobalamin (vitamin B-12) 1,000 mcg PO DAILY flaxseed oil 1,000 mg PO DAILY multivitamin 1 tab PO DAILY tamsulosin 0.4 mg PO BEDTIME 90 days Tobacco use date assessed: 11/11/23 Fall risk assessment: No Falls in past year Last assessed Fall Risk: 11/11/23 Dental Screening Dental Screen Date: 11/11/23 Did you have a dental visit in the last 12 months?: Yes Did you have a dental problem in the last 6 months where you did not have access to dental care?: No Was dental information given to patient?: Patient has dentist HPI [facility] [place] Dizziness HPI Details 73-year-old male with BPH with urinary retention, normochromic normocytic anemia vitamin B12 deficiency and essential tremor coming in for follow-up. Last seen in 05/31/2023. Patient's last colonoscopy is up-to-date 11/2019 5 years review of the notes had an ER visit in 10/[address] head negative lytes normal. dizzy - am only- states has been doing projects / work taking caffeine pil. l PFSH Medical History Cholelithiasis Migraine Tubular adenoma of colon Essential tremor Polyp of ear canal Vitamin D deficiency Vitamin B12 deficiency Surgical History History of ear surgery History of tonsillectomy Family History Father CVD (cerebrovascular disease) Stroke Mother Sister Melanoma Myocardial infarction Maternal Grandmother Pancreatic cancer Paternal Grandfather Lung cancer Maternal Aunt Colon cancer Maternal Uncle Myocardial infarction Social History Household Members: None Housing: House Alcohol intake: never Patient Tobacco Use Status: Former Tobacco user Years Smoked: stopped 1977 e-Cigarette/Vaping Use: Never Used Second Hand Smoke Exposure: No service: No Current occupational status: employed and retired Gender identity: Male Cognitive needs: No Hearing needs: No Vision needs: Yes Questionnaire Thrive Questionnaire Date Thrive assessed: 06/10/23 GIULIANO-7 AMB Questionnaire GIULIANO-7 Date GIULIANO - 7 assessed: 06/10/23 Source: Developed by Drs. Chepe Peoples, Cris Matos, Al Shaw and colleagues, with an educational daniel from [employer]. Physical exam (Primary Care) Vital Signs: Last Vital Signs Pulse 73 11/11/23 16:43 BP 130/80 11/11/23 16:43 Pulse Ox 98 11/11/23 16:43 Oxygen Delivery Method Room Air 11/11/23 16:43 BMI result Body Mass Index 22.5 Tobacco/Smoking Status: Tobacco use Status Tobacco use date assessed 11/11/23 11/11/23 16:44 Patient Tobacco Use Status Former Tobacco user 11/11/23 16:44 e-Cigarette/Vaping Use Never Used 11/11/23 16:44 Thrive Assessment: Date of Thrive Assessment Date Thrive assessed 06/10/23 11/11/23 16:44 Const General: alert; No acute distress Eyes Conjunctivae: conjunctivae normal Resp Auscultation: clear to auscultation bilaterally Cardio Rate: regular rate Rhythm: regular rhythm GI Inspection: Yes normal to inspection Extrem General: Yes normal to inspection and No edema Assessment and Plan Assessment & Plan (1) Vertigo: Code(s): R42 - Dizziness and giddiness Plan: Keep well hydrated and discussed about physical therapy (2) Hematuria: Comment: Patient has seen Urology before and workup done negative results. Called May 2023. Code(s): R31.9 - Hematuria, unspecified Plan: Continue to monitor (3) BPH (benign prostatic hyperplasia): Code(s): N40.0 - Benign prostatic hyperplasia without lower urinary tract symptoms Qualifiers: Lower urinary tract symptom presence: symptoms present Lower urinary tract symptom detail: urinary frequency Qualified Code(s): N40.1 - Benign prostatic hyperplasia with lower urinary tract symptoms; R35.0 - Frequency of micturition Plan: Patient is on tamsulosin (4) Essential tremor: Code(s): G25.0 - Essential tremor Plan: Stable (5) Normochromic normocytic anemia: Code(s): D64.9 - Anemia, unspecified Plan: Stable (6) TIA (transient ischemic attack): Code(s): G45.9 - Transient cerebral ischemic attack, unspecified Orders: Orders US carotid duplex BI Today G45.9 - Transient cerebral ischemic attack, unspecified Medications: Discontinued varicella-zoster [id number] (PF) 50 mcg/0.5 mL (Shingrix (PF)) Discontinued Reason: Patient Completed Course 0.5 mL IM ONCE 1 day 1 ea 0RF Coding Level of Care Code Est Pt Level 4 (41110) Diagnoses Vertigo R42 Hematuria R31.9 Benign prostatic hyperplasia with urinary frequency N40.1; R35.0 Lower urinary tract symptom presence: symptoms present Lower urinary tract symptom detail: urinary frequency Essential tremor G25.0 Normochromic normocytic anemia D64.9 TIA (transient ischemic attack) G45.9
== END 2023-11-11 18:00 | disposition home or self-care (01) ==
PROVIDERS: PCP Internal Medicine; Visit Provider Internal Medicine
DX: R42 Dizziness and giddiness (principal); R31.9 Hematuria, unspecified; N40.1 Benign prostatic hyperplasia with lower urinary tract symptoms; R35.0 Frequency of micturition; G25.0 Essential tremor; D64.9 Anemia, unspecified; G45.9 Transient cerebral ischemic attack, unspecified
CPT/HCPCS: 99214

== ENCOUNTER 2023-12-02 12:55 | Outpatient (REF) | payer MEDICARE, SELFPAY ==
--- NOTE | ~2023-12-02 | US_ITS ---
EXAMINATION: US EXTRACRANIAL CAROTID DUPLEX, BILATERAL CLINICAL INFORMATION: TIA COMPARISON: None available. TECHNIQUE: Real-time ultrasound and Doppler techniques (integrating B-mode 2-D vascular images, Doppler spectral analysis and color-flow Doppler imaging) were utilized to interrogate the extracranial carotid arteries, the vertebral arteries and proximal subclavian arteries bilaterally. The degree of stenosis is determined by criteria similar to NASCET. FINDINGS: Right Side: 1. There is no significant atherosclerotic plaque seen in the bifurcation/proximal ICA region. 2. The common carotid artery PSV proximally is 104 cm/s and distally 110 cm/s. 3. The proximal internal carotid artery velocities are 72 cm/s systolic and 19 cm/s diastolic. 4. The proximal external carotid artery PSV is 99 cm/s. 5. The vertebral artery shows antegrade flow. 6. The subclavian artery waveforms are normal. Left Side: 1. There is no significant atherosclerotic plaque seen in the bifurcation/proximal ICA region. 2. The common carotid artery PSV proximally is 110 cm/s and distally 127 cm/s. 3. The proximal internal carotid artery velocities are 119 cm/s systolic and 29 cm/s diastolic. 4. The proximal external carotid artery PSV is 110 cm/s. 5. The vertebral artery shows antegrade flow. 6. The subclavian artery waveforms are normal. US/US carotid duplex BI IMPRESSION: 1. RIGHT: Normal right internal carotid artery without atherosclerotic plaque or hemodynamically significant stenosis. 2. LEFT: Normal left internal carotid artery without atherosclerotic plaque or hemodynamically significant stenosis.
== END 2023-12-02 12:56 | disposition home or self-care (01) ==
LOC: HO.US 12:55
PROVIDERS: PCP Internal Medicine; Visit Provider Internal Medicine
DX: G45.9 Transient cerebral ischemic attack, unspecified (principal)
CPT/HCPCS: 93880

== ENCOUNTER 2024-04-20 08:54 | Outpatient (REF) | payer MEDICARE, SELFPAY ==
[2024-04-21 22:54] LABS: Lyme Abs Screen <0.90 index
== END 2024-04-20 08:55 | disposition home or self-care (01) ==
LOC: HO.LAB 08:54
PROVIDERS: PCP Internal Medicine; Visit Provider Internal Medicine
DX: T14.8XXA Other injury of unspecified body region, initial encounter (principal); W57.XXXA Bitten or stung by nonvenomous insect and other nonvenomous arthropods, initial encounter
CPT/HCPCS: 36415; 86617; 86618

== ENCOUNTER 2024-06-11 10:06 | Outpatient (REF) | payer MEDICARE, SELFPAY ==
[2024-06-11 11:00] LABS: MANUAL DIFF FLAG NO
[2024-06-11 11:21] LABS: Basophils Percent Auto 0.5 % (0-2); Eosinophils Absolute Auto 0.2 X10*3/uL (0.0-0.4); Eosinophils Percent Auto 3.7 % (0-4); Hematocrit 41.4 % (42.0-52.0); Hemoglobin 14.2 g/dl (14.0-18.0); Imm Gran Abs Auto 0.01 X10*3/uL (0.00-0.03); Imm Gran Pct Auto 0.2 % (0.0-0.4); Lymphocytes Absolute Auto 0.9 X10*3/uL (1.2-4.9); Mean Corpuscular HGB Conc 34.3 g/dl (31.0-36.0); Mean Corpuscular Hemoglobin 32.5 pg (27.0-33.0); Mean Corpuscular Volume 94.7 fL (80.0-98.0); Mean Platelet Volume 9.9 fL (9.4-12.4); Monocytes Absolute Auto 0.5 X10*3/uL (0.1-1.2); Monocytes Percent Auto 10.8 % (2-11); Neutrophils Absolute Auto 2.8 x10*3/uL (2.0-8.3); Neutrophils Percent Auto 63.8 % (45-73); Platelet Count 164 X10*3/uL (160-400); Red Blood Count 4.37 X10*6/uL (4.60-5.80); White Blood Count 4.3 X10*3/uL (4.8-10.8)
[2024-06-11 12:23] LABS: Alanine Aminotransferase 14 U/L (0-40); Alkaline Phosphatase 74 U/L (39-117); Anion Gap 10 (12-20); Aspartate Amino Transferase 23 U/L (5-37); Bilirubin Total 0.8 mg/dL (0.0-1.0); Blood Urea Nitrogen 17 mg/dL (9-16); Calcium 9.3 mg/dL (8.4-10.2); Carbon Dioxide 28 mmol/L (22-29); Chloride 108 mmol/L (96-108); Cholesterol 174 mg/dL (<200); Estimated Glomerular Filt Rate > 60; Glucose Random 89 mg/dL (60-115); HDL Cholesterol 48 mg/dL (>40); LDL Cholesterol Calculated 116 mg/dL (<100); Potassium 4.1 mmol/L (3.3-5.1); Sodium 142 mmol/L (135-145); Total Protein 7.3 g/dL (6.5-8.0); Triglycerides 52 mg/dL (<150)
[2024-06-11 12:47] LABS: Free T4 (Free Thyroxine) 0.99 ng/dL (0.71-1.85); Thyroid Stimulating Hormone 1.31 uIU/mL (0.32-4.0)
[2024-06-11 12:52] LABS: Folate 15.4 ng/mL (> or = 4.0); Prostate Specific Antigen Scr 1.18 ng/mL (<0.05-4.0); Vitamin B12 706 pg/mL (200-900)
== END 2024-06-11 10:07 | disposition home or self-care (01) ==
LOC: HO.LAB 10:06
PROVIDERS: PCP Internal Medicine; Visit Provider Internal Medicine
DX: G25.0 Essential tremor (principal); E78.00 Pure hypercholesterolemia, unspecified; Z12.5 Encounter for screening for malignant neoplasm of prostate
CPT/HCPCS: 36415; 80053; 80061; 82607; 82746; 84153; 84439; 84443; 85025; 96127

== ENCOUNTER 2024-06-11 10:06 | Outpatient (AMB) | payer MEDICARE, SELFPAY ==
[2024-06-11 10:16] VITALS: BP 124/62; PULSE 55; TEMP 36.1; O2SAT 99; BMI 22.9
--- NOTE | 2024-06-11 10:16 | A.OFFVIS_ITS ---
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 Required: No Accompanied by: Self / Same As Patient Allergies amoxicillin [AMOXICILLIN] Allergy (Severe, Verified 06/11/24 10:19) ITCHING bee pollen [BEE STINGS] Allergy (Severe, Verified 06/11/24 10:19) ANAPHYLAXIS hazelnut Allergy (Severe, Verified 06/11/24 10:19) SWELLING/ITCHING OF THROAT walnut Allergy (Severe, Verified 06/11/24 10:19) SWELLING/ITCHING OF THROAT hornet venom [HORNETS] Allergy (Unknown, Verified 06/11/24 10:19) ANAPHYLAXIS Penicillins [PCN] Allergy (Unknown, Verified 06/11/24 10:19) UNKNOWN lactose [LACTOSE] Adverse Reaction (Intermediate, Verified 06/11/24 10:19) GI UPSET Medication List - Last Reconciled 06/11/24 by Mora Foster MD ascorbic acid (vitamin C) 1 g PO Q6H cyanocobalamin (vitamin B-12) 1,000 mcg PO DAILY flaxseed oil 1,000 mg PO DAILY multivitamin 1 tab PO DAILY tamsulosin 0.4 mg PO BEDTIME 90 days HPI sawv HPI Details The patient is a 74 year old male presenting with routine follow-up for chronic conditions management and health maintenance. The patient has a history of hypertension, for which specific medications were not discussed during this visit. The patient also experiences constipation, which has been problematic as the patient reports difficulty defecating at night and having a hard stool consistency. The patient believes that diet modification may help with this issue. Additionally, the patient mentions a hernia, which is more consistently noticeable, with sensations of pressure especially after lifting heavy objects. However, it does not currently cause significant discomfort, and surgery has not been pursued yet. The patient reports experiencing tremors, which are notably worrisome and likely to worsen. The patient has previously used beta-blockers with a 10 mg dose and has expressed interest in potentially resuming this medication to manage the t remor. The patient experiences symptoms characteristic of Raynaud's Phenomenon, particularly in colder or damp weather, affecting primarily the fingers. The condition is managed by keeping the affected areas warm. Lastly, the patient has had a history of penicillin allergy and lactose intolerance. - The patient received COVID-19 vaccinat ion in February. - Discussion on the need for flu and betty ngles vaccinations; the shingles vaccination was noted to be incomplete. - Tamsulosin taken for urinary issues sh ows improvement, timing of the medication was discussed for optimal efficacy. - Discussion about dietary fiber intake for constipation, recommendation for psyllium fiber supplementation. - Recommendation to increase fluid intak e and maintain an active lifestyle for general health. - Encouragement to reduce stress and papa id aggravating factors for hypertension and cardiovascular health. - The patient does not consume alcohol a nd has a history of reduced smoking. - Engages in regular physical activity, walking up mountains approximately four times. - Consumes large quantities of water and tea daily. - Has been conscious about dietary intak e to manage constipation. - Neurological: Reports feeling dizzy pr imarily in the morning if dehydrated. - Respiratory: Denies shortness of breat h or chest pains. - Gastrointestinal: Reports issues with bowel movements being hard and constipation. - Genitourinary: Reports improvement in nocturia; currently wakes up a couple of times nightly. - Musculoskeletal: Denies issues with sherlyn int pain. - Dermatological: Denies rash or signifi cant skin changes. - Labs: Previous blood work showed no cu rrent cholesterol results, planned for retest. - Tests and Diagnostics: Upcoming choles terol and PSA tests discussed. [facility] Medical History (Updated 06/11/24 @ 10:21 by Mora Foster MD) TIA (transient ischemic attack) Cholelithiasis Migraine Tubular adenoma of colon Essential tremor Polyp of ear canal Vitamin D deficiency Vitamin B12 deficiency Surgical History History of ear surgery History of tonsillectomy Family History Father CVD (cerebrovascular disease) Stroke Mother Sister Melanoma Myocardial infarction Maternal Grandmother Pancreatic cancer Paternal Grandfather Lung cancer Maternal Aunt Colon cancer Maternal Uncle Myocardial infarction Social History Household Members: None Housing: House Alcohol intake: never Patient Tobacco Use Status: Former Tobacco user Years Smoked: stopped 1977 e-Cigarette/Vaping Use: Never Used Second Hand Smoke Exposure: No service: No Current occupational status: employed and retired Gender identity: Male Cognitive needs: No Hearing needs: No Vision needs: Yes Questionnaire Medicare Wellness Checkup [age] What gender do you identify with?: male During the past 4 weeks, how much have you been bothered by emotional problems such as feeling anxious, depressed, irritable, sad or downhearted, and blue?: not at all During the past 4 weeks, has your physical & emotional health limited your social activities with family, friends, neighbors, or groups?: not at all During the past 4 weeks, how much bodily pain have you generally had?: very mild pain During the past 4 weeks, was someone available to help you if you needed & wanted help?: yes, as much as I wanted During the past 4 weeks, what was the hardest physical activity you could do for at least 2 minutes?: moderate Can you get to places out of walking distance without help? (For eg., can you travel alone on buses, taxis or drive your car?): Yes Can you go shopping for groceries or clothes without someone's help?: Yes Can you prepare your own meals?: Yes Can you do your housework without help?: Yes Because of any health problems, do you need the help of another person with your personal care needs such as eating, bathing, dressing or getting around the house?: No Can you handle your own money without help?: Yes During the past 4 weeks, how would you rate your health in general?: very good During the past 4 weeks how have things been going for you?: very well; could hardly better Are you having difficulties driving your car?: no Do you always fasten your seat belt when you are in a car?: yes, usually During past 4 weeks, have you been bothered by the following: never: Sexual problems?, Trouble eating well?, Teeth or denture problems? and Problems using the telephone? and seldom: Falling or dizzy when standing up and Tiredness or fatigue? Have you fallen 2 or more times in the past year?: No Are you afraid of falling?: No Are you a smoker?: no During the past 4 weeks, how many drinks of wine, beer, or other alcoholic be verages did you have?: no alcohol at all Do you exercise for about 20 minutes 3 or more times a week?: yes, all the time Have you been given information to help with the following?: no: Hazards in your house that might hurt you? and no: Keeping track of your medications? How often do you have trouble taking medicines the way you have been told to take them?: I always take medicine as prescribed How confident are you that you can control & manage most of your health problems?: very confident What is your race?: White PHQ-9 Over the last 2 weeks, how often have you been bothered by any of the following problems? 1. Little interest or pleasure in doing things: not at all 2. Feeling down, depressed, or hopeless: not at all 3. Trouble falling or staying asleep, or sleeping too much: not at all 4. Feeling tired or having little energy: not at all 5. Poor appetite or overeating: not at all 6. Feeling bad about yourself - or that you are a failure or have let yourself or your family down: not at all 7. Trouble concentrating on things, such as reading the newspaper or watching television: not at all 8. Moving or speaking so slowly that other people could have noticed. Or the opposite - being so fidgety or restless that you have been moving around a lot more than usual: not at all 9. Thoughts that you would be better off or of hurting yourself in some way: not at all Total score: 0 Depression Screening Interpretation: Negative Depression Screening Done: Yes 70603 - PHQ-9 Billing: Yes Source: Developed by Drs. Chepe Peoples, Cris Matos, Al Shaw and colleagues, with an educational daniel from [employer]. Review of Systems Const Denies poor appetite and Denies weakness Eyes Denies no additional complaints ENT Reports Normal hearing present, Denies dizziness, Denies nasal congestion, Denies tinnitus and Denies sore throat Card Denies chest pain, Denies syncope, Denies rapid heart rate and Denies dyspnea Resp Denies cough and Denies dyspnea GI Denies change in stool character, Reports constipation, Denies diarrhea, Denies nausea and Denies vomiting Denies dysuria and Denies urinary frequency Neuro Reports Normal hearing present, Denies confusion, Denies dizziness, Denies syncope and Denies weakness Psych Denies confusion Physical Exam Vital Signs: Last Vital Signs Temp 96.9 F 06/11/24 10:16 Pulse 55 06/11/24 10:16 BP 124/62 06/11/24 10:16 Pulse Ox 99 06/11/24 10:16 Oxygen Delivery Method Room Air 06/11/24 10:16 BMI result Body Mass Index 22.9 Const General: No confusion Orientation/consciousness: No confusion HEENT Head: Yes normocephalic Ears: external ears normal and TM's normal bilaterally Face and sinus: Yes normal facial exam Mouth: moist mucous membranes Throat: Yes tonsils normal Eyes Conjunctivae: conjunctivae normal Pupils: Equal, round and reactive pupils present and Pupil accommodation reflex normal Direct Ophthalmoscopy: normal light reflex Neck Neck: No lymphadenopathy Thyroid: Thyroid normal Chest Chest palpation & inspection: normal inspection of the chest Resp Effort & Inspection: normal respiratory effort and no audible wheezes Auscultation: clear to auscultation bilaterally, no crackles, no wheezes and lung sounds not diminished Cardio Rate: regular rate Rhythm: regular rhythm Peripheral pulses: radial pulses present and dorsalis pedis present GI Other: colon test pending Palpation (GI): no masses Auscultation: normal bowel sounds and normoactive bowel sounds Rectal Exam - Male: Yes deferred Other: R inguinal mass - hernia Skin General skin exam: no rashes or lesions noted Rashes: no rashes Neuro General: No confusion Cranial nerves: Yes Equal, round and reactive pupils present and Yes Normal hearing present Cognition (Neuro): normal cognition Gait exam (Neuro): Normal gait present Motor exam (neuro): 5/5 motor strength present throughout Deep tendon reflexes (DTR's): Right brachioradialis reflex intensity grade: 2+, Left brachioradialis reflex intensity grade: 2+, Right patellar reflex intensity grade: 2+ and Left patellar reflex intensity grade: 2+ Extrem General: No edema Assessment & Plan Assessment & Plan (1) Medicare annual wellness visit, subsequent: Code(s): Z00.00 - Encounter for general adult medical examination without abnormal findings (2) Normochromic normocytic anemia: Code(s): D64.9 - Anemia, unspecified (3) Essential tremor: Code(s): G25.0 - Essential tremor (4) BPH (benign prostatic hyperplasia): Code(s): N40.0 - Benign prostatic hyperplasia without lower urinary tract symptoms Qualifiers: Lower urinary tract symptom detail: urinary frequency Lower urinary tract symptom presence: symptoms present Qualified Code(s): N40.1 - Benign prostatic hyperplasia with lower urinary tract symptoms; R35.0 - Frequency of micturition (5) Tubular adenoma of colon: Comment: years Code(s): D12.6 - Benign neoplasm of colon, unspecified (6) Inguinal hernia of right side without obstruction or gangrene: Code(s): K40.90 - Unilateral inguinal hernia, without obstruction or gangrene, not specified as recurrent Plan: will continue to monitor for now and know to call if getting pain Plan - Evaluate and optimize dietary modifications for constipation, with consideration of supplementation with psyllium. - Continue observing the management of hernia, surgical intervention only if symptoms worsen. - Prescribe beta-blockers as needed for tremor management; discuss dosing particulars. - Confirm vaccination status, complete the shingles vaccination series. - Complete blood work including cholesterol and PSA test. - Continued management of Raynaud's Phenomenon through maintaining warmth. I discussed the significance of managing chronic conditions such as hypertension and their risks to cardiovascular health. We addressed current issues of constipation and possible dietary interventions such as psyllium fiber to manage it effectively. The patient's tremor and its likely progression were discussed, with a tentative plan to use beta-blockers as needed. The patient's hernia management was reviewed, focusing on avoiding triggers and considering surgical intervention if necessary at a later stage. I reiterated the importance of completing vaccinations and the role of preventive care. The discussion extended to lifestyle modifications such as regular physical activity, adequate hydration, and stress reduction to manage overall health and specific conditions like hypertension. I advised on fluid intake, avoiding lactose due to intolerance, and maintaining a balanced diet to manage constipation. We also planned to reassess Raynaud's Phenomenon during cold weather management. - Ensure daily fiber intake with diet and consider psyllium as a supplement to help with constipation. - Keep hydrated to avoid dizziness. - Maintain regular physical activity. - Be mindful of Raynaud's Phenomenon and keep hands warm. - Schedule and complete recommended vaccinations, including the second shingles shot. - Complete laboratory tests, including cholesterol and PSA, at the next opportunity. - Monitor hernia symptoms and inform me if symptoms worsen. - Use beta-blockers for tremor as per discussed plan. - Keep scheduled follow-up visits to monitor chronic health conditions. Orders: Orders Complete Blood Count Auto Diff Today G25.0 - Essential tremor Comprehensive Met. Panel Today G25.0 - Essential tremor Free T4 (Free Thyroxine) Today G25.0 - Essential tremor Vitamin B12 and Folate Today G25.0 - Essential tremor Prostate Specific Antigen Scr Today G25.0 - Essential tremor Lipid Panel Today E78.00 - Pure hypercholesterolemia, unspecified, G25.0 - Essential tremor Thyroid Stimulating Hormone Today G25.0 - Essential tremor Referrals Gastroenterology Referral D12.6 - Benign neoplasm of colon, unspecified Medications: Changed From propranolol 10 mg PO ONCE PRN Tremor(S) G25.0 - Essential tremor To propranolol 10 mg PO BID PRN 60 tabs 0RF Tremor(S) G25.0 - Essential tremor Quality Reporting (2019) Depression/Bipolar (159/160/161/177) PHQ-9: Total score: 0 Coding Level of Care Code Medicare Subsequent (G0439) Diagnoses Medicare annual wellness visit, subsequent Z00.00 Normochromic normocytic anemia D64.9 Essential tremor G25.0 Benign prostatic hyperplasia with urinary frequency N40.1; R35.0 Lower urinary tract symptom detail: urinary frequency Lower urinary tract symptom presence: symptoms present Tubular adenoma of colon D12.6 Inguinal hernia of right side without obstruction or gangrene K40.90 Additional Codes PHQ-9 - 35975 - PHQ-9 Billing: Yes ([id number])
== END 2024-06-11 10:43 | disposition home or self-care (01) ==
PROVIDERS: PCP Internal Medicine; Visit Provider Internal Medicine
DX: Z00.00 Encounter for general adult medical examination without abnormal findings (principal); D64.9 Anemia, unspecified; G25.0 Essential tremor; N40.1 Benign prostatic hyperplasia with lower urinary tract symptoms; R35.0 Frequency of micturition; D12.6 Benign neoplasm of colon, unspecified; K40.90 Unilateral inguinal hernia, without obstruction or gangrene, not specified as recurrent

== ENCOUNTER 2025-03-18 07:22 | Day surgery (SDC) | payer MEDICARE, SELFPAY ==
--- OUTSIDE RECORDS SUMMARY | 2024-10-22 10:40 | XMS_ITS ---
Author Organization [facility] Address [address] [facility] [place] [id number] Care Team Providers Care Client Engagement Manager Name Role Phone Mora Foster MD Primary Care Provider Chepe Armas [phone] REASON FOR VISIT COLON SCREENING Encounters Encounter Location Date Provider Diagnosis [facility] [address] [place] [id number] 10/22/2024 Chepe Muller Plan Of Treatment Next Appt Details Provider Name:Chepe Muller , 03/18/2025 08:30:00 AM, [address] [place] [address] , [place], [place], [phone], Progress Notes * TITI BRADSHAW PHDDOB:1949 (75 yo M)Acc No.[id number]:10/22/2024 Progress Notes Patient: Heriberto BROOKLYNDESHAUNTITI PHD Provider: Dereck Muller MD :1950 A ge:74 Y S ex:Male Date:10/22/2024 Address:[address] [id number] Pcp:Mora Foster MD Subjective: * Chief Complaints: * 1 . COLON SCREENING. * Medical History: Objective: * Vitals: Assessment: Plan: * Treatment: * * The named appointment provid er may or may not be the originator of this progress note, and it is not deemed complete until electronically signed by the appointment provider. Sign off status: Pending * Provider: Dereck Muller MD Date: 0 10/22/2024 Generated for Gaviota schilling/Endy/Carmela on: 1 11:34 AM EDT
--- OUTSIDE RECORDS SUMMARY | 2025-03-11 11:35 | XMS_ITS | Patient Health Record ---
Author Organization [facility] Address [address] [place] [address] Care Team Providers Care Fnps Name Role Phone Po Mora MASSEY Primary Care Provider Chepe Armas [phone] Allergies Allergen (clinical drug ingredient) Drug/Non Drug Allergy documented on EMR Reaction Allergy Type Onset Date Status penicillin G Penicillin G Sodium Unknown Drug Allergy Active amoxicillin Amoxicillin Unknown Drug Allergy Act brittanie bee, wasp bites (uncoded) Unknown Allergy Active Reason For Referral No Information Medications Medication SIG (Take, Route, Fr equency, Duration) Notes Start Date End Date Status Vitamin B12 100 MCG 1 tablet Orally Once a day 12/2013 Active Inderal LA 120 MG 1 capsule Orally PRN PRN Active Flax Seed Oil 1000 MG as directed Orally Active Mens Multivitamin Plus Active Tamsulosin HCl 0.4 MG TAKE 1 CAPSULE BY MOUTH AT BEDTIME Oral; Duration: 90 Days Active Immunizations Vaccine Route Administration Date Status Comme nts Influenza Unknown 03/02/2024 Administered Social History AUDIT-C (Standard) Question Answer Notes Did you have a drink containing alcohol in the p ast year? No Points 0 Interpretation Negative Section Notes: Nonsmoker; occasional wine Nonsmoker; occasional wine Nonsmoker; occasional wine Problems Problem Type SNOMED Code ICD Code Onset Dates Problem Status W/U Status Risk Notes Problem Screening for malignant neoplasm of colon (248588178) Encounter for screening for malignant neoplasm of colon (Z12.11) Active confirmed Problem History of adenomatous polyp of colon (968100430) History of adenomatous polyp of colon (Z86.010) Active confirmed Problem Constipation (36718065) Constipation (K59.00) Active confirmed Problem Preprocedural examination (793158359848416) Preprocedural examination (Z01.818) Active confirmed Vital Signs Temperature 97.5 degrees Fahrenheit 11/30/2024 Blood pressure diastolic 01 mm Hg 11/30/2024 Height 72 in 11/30/2024 Blood pressure systolic 001 mm Hg 11/30/2024 Weight 164 lbs 11/30/2024 BMI 22.24 kg/m2 11/30/2024 Procedures Procedure Date Ordered Date Performed Result Body Sit e COLONOSCOPY 11/30/2024 N/A Encounters Encounter Location Date Provider Diagnosis [facility] [address] [place] [address] 11/30/2024 Chepe Muller History of adenomato us polyp of colon Z86.010 ; Constipation K59.00 ; Encounter for screening for malignant neoplasm of colon Z12.11 and Preprocedural examination Z01.818 Assessments Encounter Date Diagnosis (ICD Code) Assessment Notes Treatment Notes Treatment Clinical Notes Section Notes 11/30/2024 History of adenomatous polyp of colon (ICD-10 - Z86.010) Overall, Titi appears quite well. He is not having any particularly new or worrisome GI complaints. His occasional and transient constipation does not seem particularly problematic and certainly does not seem worrisome given the spontaneous improvement and long stretches of time in which his bowel movements are regular. I did recommend keeping an eye on his dietary fiber and fluids to make sure those are always at good levels. I did recommend a follow-up colonoscopy for further screening given his history of tubular adenomas and his last colonoscopy being 5 years ago. We did review the rationale for this in regard to colon cancer prevention. Full consent has been obtained from him for this, including risks of bleeding and perforation. The procedure will be done with monitored anesthesia care. Titi was comfortable with this plan. Thank you again for allowing me to participate in Titi's care. I shall continue to keep you advised of his progress. 11/30/2024 Constipation (ICD-10 - K59.00) Overall, Titi appears quite well. He is not having any particularly new or worrisome GI complaints. His occasional and transient constipation does not seem particularly problematic and certainly does not seem worrisome given the spontaneous improvement and long stretches of time in which his bowel movements are regular. I did recommend keeping an eye on his dietary fiber and fluids to make sure those are always at good levels. I did recommend a follow-up colonoscopy for further screening given his history of tubular adenomas and his last colonoscopy being 5 years ago. We did review the rationale for this in regard to colon cancer prevention. Full consent has been obtained from him for this, including risks of bleeding and perforation. The procedure will be done with monitored anesthesia care. Titi was comfortable with this plan. Thank you again for allowing me to participate in Titi's care. I shall continue to keep you advised of his progress. 11/30/2024 Encounter for screening for malignant neoplasm of colon (ICD-10 - Z12.11) Overall, Titi appears quite well. He is not having any particularly new or worrisome GI complaints. His occasional and transient constipation does not seem particularly problematic and certainly does not seem worrisome given the spontaneous improvement and long stretches of time in which his bowel movements are regular. I did recommend keeping an eye on his dietary fiber and fluids to make sure those are always at good levels. I did recommend a follow-up colonoscopy for further screening given his history of tubular adenomas and his last colonoscopy being 5 years ago. We did review the rationale for this in regard to colon cancer prevention. Full consent has been obtained from him for this, including risks of bleeding and perforation. The procedure will be done with monitored anesthesia care. Titi was comfortable with this plan. Thank you again for allowing me to participate in Titi's care. I shall continue to keep you advised of his progress. 11/30/2024 Preprocedural examination (ICD-10 - Z01.818) Overall, Titi appears quite well. He is not having any particularly new or worrisome GI complaints. His occasional and transient constipation does not seem particularly problematic and certainly does not seem worrisome given the spontaneous improvement and long stretches of time in which his bowel movements are regular. I did recommend keeping an eye on his dietary fiber and fluids to make sure those are always at good levels. I did recommend a follow-up colonoscopy for further screening given his history of tubular adenomas and his last colonoscopy being 5 years ago. We did review the rationale for this in regard to colon cancer prevention. Full consent has been obtained from him for this, including risks of bleeding and perforation. The procedure will be done with monitored anesthesia care. Titi was comfortable with this plan. Thank you again for allowing me to participate in Titi's care. I shall continue to keep you advised of his progress. Plan Of Treatment Pending Test Test Name Order Date COLONOSCOPY 11/30/2024 Future Test Test Name Order Date COLONOSCOPY 02/16/2014 COLONOSCOPY 06/04/2019 Next Appt Details Provider Name:Chepe Muller , 03/18/2025 08:30:00 AM, [address] [facility] , [place], [place], [id number], Insurance Providers Payer Name Payer Address Payer Phone Subscriber Number Group Number Insured Name Patient Relationship to Insured Coverage Start Date Coverage End Date MEDICARE OF [place] [address] [place] [address] [id number] TITI BRADSHAW Self - patient is the insured MED[employer] ATTN CLAIMS [address] [place] [address] [id number] BRADSHAWTITI Self - patient is the insured Medical (General) History Medical History History ICD Code Colonoscopy in 2002 with only hyperplast ic polyps Colonoscopy 07-27-2008- 1 small tubular a denoma removed Denies PR,DM,CVA,Lung disease,renal dise ase Mild diverticulosis Essential tremor-takes Inderal rarely Colonoscopy in 04/2014 with removal of 2 small tubular adenomas Negative screening colonoscopy in 11/2019 Benign Leukopenia/Chronic anemia- saw Dr Samuel Miramontes Surgical History Surgery Date(Month/Year) Tonsillectomy Benign polyp removal from right ear
--- OUTSIDE RECORDS SUMMARY | 2025-03-11 11:35 | XMS_ITS | Clinical Summary ---
Author Organization [facility] Address [address] [place], [place] [id number] Phone Care Team Providers Care [employer] Name Role Phone Mora Foster MD Primary Care Provider [phone] Allergies Active Allergy Reactions Criticality Noted Date Comments Amoxicillin 05/14/2017 Penicillins 05/14/2017 Medications PROPRANOLOL HCL (INDERAL LA ORAL) as needed. Active Social History Tobacco Use Types Packs/Day Years Used Date Smoking Tobacco: Never Smokeless Tobacco: Never Alcohol Use Standard Drinks/Week Comments Yes 0 (1 standard drink = 0.6 oz pur e alcohol) occ Sex and Gender Information Value Date Recorded Sex Assigned at Male 05/19/2017 9:38 AM EST Legal Sex Male 7:07 PM EST Gender Identity Male 05/19/2017 9:38 AM EST Sexual Orientation Straight 05/19/2017 9: 38 AM EST Last Filed Vital Signs Vital Sign Reading Time Taken Comments Blood Pressure 124/74 05/14/2017 11:20 PM EST Pulse 107 05/15/2017 12:05 AM EST Temperature 36.8 C (98.3 F) 05/14/2017 9:30 PM EST Respiratory Rate 18 05/14/2017 11:20 PM EST Oxygen Saturation 98% 05/14/2017 11:20 PM EST Inhaled Oxygen Concentration - - Weight 79.4 kg (175 lb) 05/14/2017 7:13 PM EST Height 182.9 cm (6') 05/14/2017 7:13 PM EST Body Mass Index 23.73 05/14/2017 7:13 PM EST Plan of Treatment Not on file Medical Devices Not on file Insurance MEDICARE PART A & B [employer] SUPPLEMENT MEDICARE PART A & B [employer] SUPPLEMENT MEDICARE PART A & B [employer] SUPPLEMENT MEDICARE PART A & B [employer] SUPPLEMENT MEDICARE PART A & B [employer] SUPPLEMENT MEDICARE PART A & B [employer] MED[employer] SUPPLEMENT MEDICARE PART A & B [facility] MEDEX SUPPLEMENT MEDICARE PART A & B [employer] MEDEX SUPPLEMENT MEDICARE PART A & B [employer] MEDEX SUPPLEMENT Care Teams [employer] Relationship Specialty Start Date End Date Mora Foster MD [address] [place] [address] [address] [place] [phone] PCP - General Internal Medicine 05/14/17 Additional Source Comments The information contained in this document represents components of the legal health record. It is not the complete legal health record.[facility]
--- NOTE | 2025-03-16 12:07 | HO.ANESPROP2 ---
Documented by User: Shamika Rico NP 03/16/25 12:07 HPI - Anesthesia Eval Consult details Narrative: 75 yr old male for colonoscopy ON LICENSE OF [facility] Active Problems Active Problems: All Active Problems Tubular adenoma of colon (Acute) Vertigo (Acute) Hematuria (Acute) Urinary retention (Acute) BPH (benign prostatic hyperplasia) (Acute) Medicare annual wellness visit, subsequent (Acute) Frequency of micturition (Acute) Normochromic normocytic anemia (Acute) Anemia (Acute) Hypocalcemia (Acute) Tick bite (Acute) Encounter for Medicare annual wellness exam (Acute) Vitamin B12 deficiency (Acute) Essential tremor (Acute) Inguinal hernia of right side without obstruction or gangrene (Acute) Past Medical History Medical History Chronic leukopenia TIA (transient ischemic attack) Cholelithiasis Migraine Tubular adenoma of colon Essential tremor Polyp of ear canal Vitamin D deficiency Vitamin B12 deficiency Family History Family History Father CVD (cerebrovascular disease) Stroke Mother Sister Melanoma Myocardial infarction Maternal Grandmother Pancreatic cancer Paternal Grandfather Lung cancer Maternal Aunt Colon cancer Maternal Uncle Myocardial infarction Surgical History Surgical History H/O colonoscopy History of ear surgery History of tonsillectomy Social History Social History Household Members: None Housing: House Are you a primary animal care taker to a significant other at home: No Do you presently have visiting nurse or other home services: No Alcohol intake: never Patient Tobacco Use Status: Former Tobacco user Years Smoked: stopped 1977 e-Cigarette/Vaping Use: Never Used Second Hand Smoke Exposure: No Have you been hit, kicked, punched, or otherwise hurt by someone within the past year? If so, by whom?: No Are you DNR?: No Advance Directives: No Advance Directives Information Provided: Yes service: No Current occupational status: employed and retired Gender identity: Male Cognitive needs: No Hearing needs: No Vision needs: Yes Meds Allergies Allergy/AdvReac Type Severity Reaction Status Date / Time amoxicillin (AMOXICILLIN) Allergy Severe ITCHING Verified 03/18/25 07:40 bee pollen (BEE STINGS) Allergy Severe ANAPHYLAXIS Verified 03/18/25 07:40 hazelnut Allergy Severe SWELLING/ITCHING Verified 03/18/25 07:40 OF THROAT walnut Allergy Severe SWELLING/ITCHING Verified 03/18/25 07:40 OF THROAT hornet venom (HORNETS) Allergy Unknown ANAPHYLAXIS Verified 03/18/25 07:40 Penicillins (PCN) Allergy Unknown UNKNOWN Verified 03/18/25 07:40 lactose (LACTOSE) AdvReac Intermediate GI UPSET Verified 03/18/25 07:40 Home Medications ?Medication ?Instructions ?Recorded ?Confirmed ?Last Taken ?Type cyanocobalamin (vitamin B-12) 1,000 mcg PO DAILY 04/04/20 03/16/25 Unknown History 1,000 mcg capsule flaxseed oil 1,000 mg capsule 1,000 mg PO DAILY 04/04/20 03/16/25 Unknown History multivitamin 1 tab PO DAILY 04/04/20 03/16/25 Unknown History ascorbic acid (vitamin C) 1,000 mg 1 g PO Q6H 06/10/23 03/18/25 Unknown History capsule propranolol 120 mg capsule,24 120 mg PO DAILY 03/16/25 03/16/25 Unknown History hr,extended release (Inderal LA) Documented by User: Roselyn Munoz MD 03/18/25 07:56 ON LICENSE OF [facility] Past Medical History Medical History Chronic leukopenia TIA (transient ischemic attack) Cholelithiasis Migraine Tubular adenoma of colon Essential tremor Polyp of ear canal Vitamin D deficiency Vitamin B12 deficiency Family History Family History Father CVD (cerebrovascular disease) Stroke Mother Sister Melanoma Myocardial infarction Maternal Grandmother Pancreatic cancer Paternal Grandfather Lung cancer Maternal Aunt Colon cancer Maternal Uncle Myocardial infarction Family history of problems with anesthesia: No Surgical History Surgical History H/O colonoscopy History of ear surgery History of tonsillectomy History of Problems with Anesthesia: No Social History Social History Household Members: None Housing: House Are you a primary animal care taker to a significant other at home: No Do you presently have visiting nurse or other home services: No Alcohol intake: never Patient Tobacco Use Status: Former Tobacco user Years Smoked: stopped 1977 e-Cigarette/Vaping Use: Never Used Second Hand Smoke Exposure: No Have you been hit, kicked, punched, or otherwise hurt by someone within the past year? If so, by whom?: No Are you DNR?: No Advance Directives: No Advance Directives Information Provided: Yes service: No Current occupational status: employed and retired Gender identity: Male Cognitive needs: No Hearing needs: No Vision needs: Yes Meds Allergies Allergy/AdvReac Type Severity Reaction Status Date / Time amoxicillin (AMOXICILLIN) Allergy Severe ITCHING Verified 03/18/25 07:40 bee pollen (BEE STINGS) Allergy Severe ANAPHYLAXIS Verified 03/18/25 07:40 hazelnut Allergy Severe SWELLING/ITCHING Verified 03/18/25 07:40 OF THROAT walnut Allergy Severe SWELLING/ITCHING Verified 03/18/25 07:40 OF THROAT hornet venom (HORNETS) Allergy Unknown ANAPHYLAXIS Verified 03/18/25 07:40 Penicillins (PCN) Allergy Unknown UNKNOWN Verified 03/18/25 07:40 lactose (LACTOSE) AdvReac Intermediate GI UPSET Verified 03/18/25 07:40 Home Medications ?Medication ?Instructions ?Recorded ?Confirmed ?Last Taken ?Type cyanocobalamin (vitamin B-12) 1,000 mcg PO DAILY 04/04/20 03/16/25 Unknown History 1,000 mcg capsule flaxseed oil 1,000 mg capsule 1,000 mg PO DAILY 04/04/20 03/16/25 Unknown History multivitamin 1 tab PO DAILY 04/04/20 03/16/25 Unknown History ascorbic acid (vitamin C) 1,000 mg 1 g PO Q6H 06/10/23 03/18/25 Unknown History capsule propranolol 120 mg capsule,24 120 mg PO DAILY 03/16/25 03/16/25 Unknown History hr,extended release (Inderal LA) Exam Airway Mallampati Class: II TM Dist: >3cm Neck ROM: Limited Heart: rrr Lungs: cta Assessment and Plan Assessment Anesthesia Assessment: Anesthesia Plan Discussed and Chart Reviewed Final Anesthetic Review Family History of Problems with Anesthesia: No History of Problems with Anesthesia: No NPO: Yes ASA Class: II Final Preanesthetic Review: No Changes in Pt Med Stat, Meds/Allgs Chart Reviewed, Consent Obtained/Reviewed and Anes Risks/Benef Reviewed Patient Risk: Low Procedure Risk: Low Anesthetic Plan Anesthetic Plan: MAC: Disposition: Standard PACU
[2025-03-16 14:05] VITALS: BMI 22.2
[2025-03-18 07:37] VITALS: BMI 22.1
[2025-03-18] MEDS: Lactated Ringers 1,000 ML 100 ML IVCONT (07:47)
[2025-03-18 07:48] VITALS: BP 121/61; PULSE 64; RESP 18; TEMP 36.7; O2SAT 100
[2025-03-18 09:56] VITALS: BP 94/48; PULSE 61; RESP 16; TEMP 36.6; O2SAT 96
--- NOTE | 2025-03-18 09:58 | P.BOP_ITS ---
Brief Operative Note Date of Service: 03/18/25 Pre-op diagnosis: Screening Post-op diagnosis: other (Polyps) Procedure: Colonoscopy to the cecum and TI with cold snare polypectomies x 4 Surgeon: Chepe Muller MD Anesthesia: MAC Was an Custom Tailor Apprentice used for this Procedure?: No Estimated blood loss (mL): 2.0 Pathology: other (A. Transverse colon polyp B. Polyp at 30cm C. Polyps at 20cm) Condition: stable Disposition: PACU
[2025-03-18 10:11] VITALS: BP 104/61; PULSE 58; RESP 15; O2SAT 97
--- NOTE | 2025-03-18 10:13 | OP_ITS ---
DATE OF SERVICE: 03/18/2025 SURGEON: Chepe Muller MD INDICATIONS: The patient presents for evaluation of personal history of tubular adenoma of the colon and colorectal cancer screening. Full consent has been obtained from him for this, including risks of bleeding and perforation. PREOPERATIVE DIAGNOSIS: POSTOPERATIVE DIAGNOSIS: PROCEDURE PERFORMED: Colonoscopy to the cecum and terminal ileum with cold snare polypectomy x4. ESTIMATED BLOOD LOSS: COMPLICATIONS: ANESTHESIA: Medication used, monitored anesthesia care. ASSISTANTS: SPECIMENS: PREOPERATIVE DIAGNOSES: Colorectal cancer screening and personal history of tubular adenoma of the colon. POSTOPERATIVE DIAGNOSES: Colorectal cancer screening and personal history of tubular adenoma of the colon, colon polyps, sigmoid diverticulosis, and internal hemorrhoids. DESCRIPTION OF PROCEDURE: The patient was placed in the left lateral decubitus position. The digital rectal exam revealed no abnormalities. The Olympus video pediatric colonoscope was entered into the rectum and advanced easily to the cecum. Once in the cecum, I did identify normal-appearing cecal pouch with appendiceal orifice, and a normal-appearing ileocecal valve. The terminal ileum was briefly cannulated and appeared normal. The scope was withdrawn back in the colon. The entire cecum and ileocecal valve appeared normal. The scope was slowly withdrawn assessing all mucosal surfaces carefully. Preparation was excellent. In the transverse colon, at 30 cm, and at 20 cm were flat polyps between 5 and 8 mm in diameter. There were 2 polyps at the 20 cm area. These were all removed by cold snare polypectomies and recovered by suction. All the polypectomy sites appeared clean, without any sign of residual polyp nor significant bleeding. I did not visualize any other polyps, colitis, nor angiodysplasia. There was a mild amount of sigmoid diverticulosis. In the rectum, the scope was retroflexed visualizing internal hemorrhoids, but no other pathology. The rectal mucosa appeared normal. The scope was straightened and withdrawn from the patient. He tolerated the procedure well and was returned to the recovery area in stable condition. IMPRESSION: 1. Colon polyps. 2. Diverticulosis. 3. Internal hemorrhoids. PLAN: The results of the pathology will be checked. He was advised not to use any aspirin nor NSAIDs for 1 week. I would recommend a repeat colonoscopy in 5 years although at that point, he would be in his late 70s, and we would need to take his clinical condition into account. He will otherwise see me on a p.r.n. basis. MD TAMEKA Barnhart/NUNO / [id number] PUJA
[2025-03-18 10:26] VITALS: BP 112/57; PULSE 57; RESP 12; O2SAT 97
[2025-03-18 10:41] VITALS: BP 120/53; PULSE 56; RESP 14; TEMP 36.7; O2SAT 97
== END 2025-03-18 11:07 | disposition home or self-care (01) ==
PROVIDERS: PCP Internal Medicine; Visit Provider Internal Medicine
PROC: 0DJD8ZZ Inspection of Lower Intestinal Tract, Via Natural or Artificial Opening Endoscopic (ICD-10-PCS; CPT 45378; principal; 2025-03-18 08:30)
DX: Z12.11 Encounter for screening for malignant neoplasm of colon (principal); Z86.0101 Personal history of adenomatous and serrated colon polyps; K59.00 Constipation, unspecified; K57.30 Diverticulosis of large intestine without perforation or abscess without bleeding; K64.8 Other hemorrhoids; D12.5 Benign neoplasm of sigmoid colon; D12.3 Benign neoplasm of transverse colon
CPT/HCPCS: 45385; 88305; J2704